=== PATIENT | male | born 1950 | race Two or more races ===

== ENCOUNTER 2024-06-26 07:44 | Day surgery (SDC) | payer OTHER ==
[~2024-06-26] VITALS: Ht 175.3 cm; Wt 117.0 kg
[~2024-06-26 07:44] MED LIST: APIX5TAB PO; ASCO500T11 PO; ATOR-47 PO; B COCAP OR; CARV12.544 PO; CHOL50007 PO; CLON0.1T PO; DRON400T PO; FERR-7 PO; FURO40TA4 PO; GABA-339 PO; HYDR-2792 PO; INSU70IN3 SC; LISI10TA34 PO; OMEG120015 PO; POM PO; POTA-180 PO; ZINC50TA7 PO
[2024-06-26] MEDS ORDERED: HEPARIN IN NS 1000Units/500mL 1,500 ML ONE (08:11)
[2024-06-26] MEDS ORDERED: IODIXANOL 320MG/ML 100ML BTL IV ONE ×3 (08:11→12:24)
[2024-06-26] MEDS ORDERED: fentaNYL CITRATE 100 MCG/2 ML VL ONE (10:51)
[2024-06-26] MEDS ORDERED: LIDOCAINE 2%HCL (LOCAL ANESTH.) INJ 20ML MDV ONE (10:51)
[2024-06-26] MEDS ORDERED: MIDAZOLAM HCL 2MG/2ML 2ml VIAL (1mg/ml) ONE ×2 (10:51→12:51)
[2024-06-26] MEDS ORDERED: SODIUM CHL 0.9% 50 ML ONE ×2 (10:51→12:36)
[2024-06-26] MEDS ORDERED: ANGIOMAX 250 MG VIAL IV ONE ×2 (10:51→12:36)
[2024-06-26] MEDS ORDERED: HEPARIN SODIUM (PORCINE) 5000 UNITS/ML 1ML VIAL ONE (11:37)
[2024-06-26] MEDS ORDERED: ASPirin 81 mg TAB ONE ×2 (13:11→13:12)
[2024-06-26] MEDS ORDERED: CLOPIDOGREL BISULFATE 75 MG TAB ONE (13:11)
--- NOTE | 2024-06-26 13:37 | DVHOP2 ---
Operative Report -Cardiology Report Details Date: 06/26/24 Preop Diagnosis: Coronary artery disease. Aortic stenosis. Postop Diagnosis: Coronary artery disease. Successful PTCA and stenting of the saphenous graft to the marginal branch. Evaluation of the aortic stenosis. Surgeon: Estephanie Kearney MD Anesthesiologist: Conscious sedation Anesthesia: Mac, Local Consent: The patient was informed of the risks and benefits of the procedure. These include but are not limited to complications of anesthesia, postoperative infection, incomplete relief of symptoms, recurrence of symptoms, damage to blood vessels, nerves and tendons, deep venous thrombosis, pulmonary embolism and possible need for repeat surgery in the future. Complications: No complications Findings: CAD. Aortic stenosis. Indications for Surgery: CAD. Aortic stenosis Name of Procedure Performed Right and left heart catheterization. Bilateral cine coronary angiography and left ventriculography. Visualization of saphenous venous grafts and left internal mammary artery. PTCA stenting of the saphenous graft to the marginal branch. Procedure Details Procedure Details: Prior local anesthesia with 2% lidocaine to the right groin and full informed consent obtained under fluoroscopic and ultrasound guidance we were able to delineate the femoral artery and vein. We gave local anesthesia and conscious sedation and placed a six [place]raini sheath into the femoral vein and a six [place]i sheath into the femoral artery. We then placed a Orland-Tameka catheter into the right atrium right ventricle pulmonary artery capillary wedge pressure positions where pressures were obtained and recorded. Through the femoral arterial sheath we placed a Princeton catheter and placed into the ventricle subsequent to exchanging over a wire and initially using a JR4 to excise left ventricle. Right and left coronary catheters were used to cannulate the coronary ostium and an AL1 was then used for visualization of saphenous venous grafts. An AL1 guide was used for PTCA and stenting of the saphenous graft to the circumflex. We also used a right coronary catheter to access the internal mammary artery. PTCA and stenting as will be delineated below. Hemodynamics aortic blood pressure was 130/70. End-diastolic pressure was 16. Right atrial pressure was 10. Right ventricular pressure was 31 over 10 with a right ventricular pressure of 30/20. Capillary wedge pressure was 12-15. There was a 20 mm gradient across the aortic valve on simultaneous evaluations with a Princeton catheter in the right ventricle and aortic root. Cardiac output blood thermodilution technique was approximately 4.2. 20 mm gradient across the aortic valve was noted. An aortic valve area was calculated at 0.9 8-1.1 cm2 consistent with [id number] aortic stenosis. Coronary anatomy RCA is occluded proximally. Left main has an ostial 99% stenosis and a distal 99% lesion. Left anterior descending coronary artery is diffusely diseased proximally with competitive flow from the MINA. The circumflex coronary artery has a 99% subtotal stenosis with competitive flow noted from the saphenous graft via a marginal branch. The left internal mammary to the LAD is patent. There was moderate disease of the LAD without critical lesions. The saphenous graft to the RCA PDA is patent. Distal filling of the small posterolateral branches is noted. The proximal PDA has a 40 50% stenosis. Minimal retrograde filling of the RCA. The saphenous crossed the large obtuse marginal branches noted. There is retrograde filling into the circumflex and distal inferior circumflex proper via saphenous graft. The saphenous graft itself prior to the anastomosis has an 80% lesion. Appears to be fibrocalcific. The for the saphenous graft was not foun d. Ventriculography in the EDWARDS projection shows an EF of about 50% to 55%. Angioplasty was performed for which an AL1 guide and a spider wire were placed with the help of a Specter wire. We placed the 6 mm spider wire in the distal saphenous graft prior to the anastomosis of the marginal branch. We then took a 4-0 balloon dilated to a possible 15-20 atmospheres with a residual lesion the level of the stenosis previously described. We then placed a 4-0 by 12 mm stent which is a drug-eluting aruna trunk stent. Consists of the flow proximally 18 atmospheres. There was excellent antegrade flow without thrombus formation and/or dissection. We subsequently removed the spider wire with its retraction catheter and Perclose devices were used to seal the artery. Femoral venous sheath was left to be pulled in the recovery room Impression: Elevated left ventricular end-diastolic pressure at rest. Decreased left ventricular ejection fraction at 50%. Normal pulmonary pressures. Mildly elevated left ventricular end-diastolic pressure at rest. Mild gradient across the aortic valve with 20 mmHg. Valve area of point two one cm2 consistent with moderate aortic stenosis. Successful PTCA and stenting of the saphenous graft to the marginal branch. Patent left internal mammary artery to the LAD. Patent saphenous graft to the right. Recommendations: Dual antiplatelet therapy. Follow up as an outpatient. Sphincter modification to continue Disposition Home ESTEPHANIE KEARNEY Sr., MD Jun 26, 2024 13:37
[2024-06-26] MEDS ORDERED: CLOP75TA28 PO (14:34)
[2024-06-26] MEDS ORDERED: ASPI-543 PO (14:34)
== END 2024-06-26 15:20 | disposition home or self-care (01) ==
LOC: CATH 07:44
PROVIDERS: ATTEND Internal Medicine
DX: R07.9 Chest pain, unspecified (principal); I25.10 Atherosclerotic heart disease of native coronary artery without angina pectoris; I35.0 Nonrheumatic aortic (valve) stenosis; Z95.5 Presence of coronary angioplasty implant and graft
CPT/HCPCS: 93461; C1725; C1769; C1874; C1884; C1887; C1894; C9604; J0583; J1644; J2250; J3010; J7030; Q9967; 99152; 99153

== ENCOUNTER 2024-07-14 21:56 | Inpatient (IN) | payer OTHER ==
[~2024-07-14] VITALS: Ht 172.7 cm; Wt 113.0 kg
[~2024-07-14 21:56] MED LIST changes: +ASPI-543 PO; +CLOP75TA28 PO
[2024-07-14] MEDS: ASPirin 81 mg TAB PO ONE (22:15)
[2024-07-14] MEDS ORDERED: ASPirin 325 MG TAB PO ONE (22:15)
--- NOTE | 2024-07-14 22:20 | ED.PDOC ---
History of Present Illness HPI Comments 73 y/o M, with a Hx of aortic stenosis, CAD, DM, HLD, HTN, 4xCABG, PTCA, obesity, and former tobacco use, presents with c/o sternal chest pain that radiates to his jaw, today. Patient endorses on sudden and unprovoked onset of stabbing and aching pain that awoke him from his sleep at 2100, this evening. He comments on recent PTCA (saphenous graft to marginal branch) placement performed by skein winder Pradeep Kearney M.D. on 06/26/24 and being on ASA and Plavix since. He comments on history of compliancy with his medications and last taking 1x dose of ASA and Plavix this morning and evening, respectively. Patient also reports on taking NTG a half-hour prior to ED arrival, with moderate improvement to pain since taking it. Patient endorse no further relevant or pertinent information at time of assessment, such as recent stress, strenuous activities, or sick contact. He denies having any shortness of breath, palpitations, nausea, vomiting, fever, chills, or other associated symptoms or modifiers at this time. Chief Complaint: Chest Pain Time Seen by MD: 22:00 Reviewed Notes: Nurses Notes, Medications, Allergies Allergies: Uncoded Allergies: NONE (Allergy, Unknown, 06/24/24) Home Meds Reported Medications Aspirin (Aspir-Low) 81 Mg Tab, 81 MG PO DAILY for new stent for 30 Days, MG 06/26/24 Clopidogrel Bisulfate (Plavix) 75 Mg Tab, 1 TAB PO DAILY for new stent, #90 TAB 1 Refill 06/26/24 Insulin NPH Isophane & Reg (Hu (Novolin 70/30 (70-30) 100 Unit/ml) 1 Inj Inj, 45 IU SC BID for DIABETES, INJ 06/24/24 Patients Own Medication (PATIENTS OWN MEDICATION) ., 150 PO DAILY for IMMUNO PTS OWN MED-OBTAIN FROM PT AND SEND TO RX DRUG: FREQ: RX# EXP: DATE DISP: TECH: RPH: 06/24/24 B-Complex Vitamins (B-Complex) Cap, 1 OR DAILY, CAP 06/24/24 Fish Oil (Fish Oil) 1,200 Mg Cap, 1200 MG PO, CAP 06/24/24 Potassium Chloride (Potassium Chloride ER) 20 Meq Tab, 20 MEQ PO EOD, TAB 06/24/24 Zinc Gluconate (Zinc) 50 Mg Tab, 50 MG PO S,W,F, TAB 06/24/24 Ferrous Sulfate (Iron) 325 Mg Tab, 325 MG PO S,W,F, TAB 06/24/24 Ascorbic Acid (VITAMIN C TABLET) 500 Mg Tb, 2 TAB PO DAILY, #30 TAB 3 Refills 06/24/24 Cholecalciferol (VITAMIN D3) 5,000 Unit Cap, 5000 UNIT PO 2XW, CAP 06/24/24 Clonidine Hydrochloride (Clonidine Hcl) 0.1 Mg Tab, 0.1 MG PO BID for HTN, MG 06/24/24 Gabapentin (Gabapentin) 600 Mg Tab, 600 MG PO BID for NEUROPATHY, MG 06/24/24 Atorvastatin Calcium (ATORVASTATIN CALCIUM) 80 Mg Tab, 1 TAB PO DAILY, #30 TAB 5 Refills 06/24/24 Carvedilol (Carvedilol) 12.5 Mg Tab, 12.5 MG PO BID for HTN, MG 06/24/24 Furosemide (Furosemide) 40 Mg Tab, 40 MG PO DAILY for EDEMA 06/24/24 Hydralazine Hcl (Hydralazine Hcl) 10 Mg Tab, 10 MG PO BID for HTN, MG 06/24/24 Lisinopril (Lisinopril) 10 Mg Tab, 10 MG PO DAILY for HTN for 30 Days, MG 06/24/24 Dronedarone Hydrochloride (Multaq) 400 Mg Tab, 1 TAB PO BID, #180 TAB 1 Refill 06/24/24 Apixaban Base (ELIQUIS) 5 Mg Tab, 5 MG PO BID for CHEST PAIN, S/P CABG, TAB 06/24/24 Information Source: Patient Mode of Arrival: Ambulatory Severity: Moderate Timing: Hours Duration: Since onset Prehospital treatment: None Past Medical History PAST MEDICAL HISTORY: CAD, DM, High Lipids, HTN Past Medical History (Other): aortic stenosis, obesity Surgical History: CABG (4x), PTCA (saphenous graft to marginal branch on 06/26/24 on Plavix and ASA since ) Family History Family History: Unknown Social History Smoker: Non-Smoker, Quit Greater Than 1 Year Alcohol: Denies ETOH Use Drugs: Denies Drug Use Lives In: Home Cardiovascular: reports: chest pain Musculoskeletal: reports: others (jaw pain ) All Other Systems: Reviewed and Negative (negative unless otherwise stated above or in HPI) Physical Exam General Appearance: No Apparent Distress, Obese HEENT: Normal ENT Inspection, Pharynx Normal, TMs Normal Neck: Full Range of Motion, Non-Tender, Normal, Normal Inspection Respiratory: Chest Non-Tender, Lungs Clear, No Accessory Muscle Use, No Respiratory Distress, Normal Breath Sounds Cardiovascular: No Edema, No JVD, No Murmur, No Gallop, Normal Peripheral Pulses, Regular Rate/Rhythm Breast Exam: Deferred Gastrointestinal: No Organomegaly, Non Tender, No Pulsatile Mass, Normal Bowel Sounds, Soft Genitalia: Deferred Pelvic: Deferred Rectal: Deferred Extremities: No calf tenderness, Normal capillary refill, Normal inspection, Normal range of motion, Non-tender, No pedal edema Musculoskeletal : Apperance: Normal Neurologic: Alert, secure software assessor II-XII nml as Tested, No Motor Deficits, Normal Affect, Normal Mood, No Sensory Deficits Cerebellar Function: Normal Reflexes: Normal Skin: Dry, Normal Color, Warm Lymphatic: No Adenopathy Was a procedure done? Was a procedure done?: No EKG EKG : Pulse Rate (adult): 82 [place]: Normal Cardiac Rhythm: NSR Block: RBBB Hypertrophy: None ST: Normal Comments Left anterior fascicular block Differential Dx Considerations may include: WA, PE, PNA, ACS, costochondritis, pericarditis, gastritis, gastroenteritis, anxiety, angina, musculoskeletal pain X-Ray, Labs, Meds, VS Vital Signs Date Time Temp Pulse Resp B/P (MAP) Pulse Ox O2 Delivery O2 Flow Rate FiO2 07/14/24 22:56 69 07/14/24 22:20 82 07/14/24 22:06 98.3 79 16 116/41 (66) 94 07/14/24 22:00 82 Lab Test 07/14/24 23:02 07/14/24 22:05 Range/Units Troponin I High Sensitivity 131 *H 135 *H </=54 ng/L White Blood Count 6.6 4.4-10.8 10^3/uL Red Blood Count 2.51 L 4.5-5.90 10^6/uL Hemoglobin 7.8 L 13.5-17.5 g/dL Hematocrit 23.0 L 41.0-53.0 % Mean Corpuscular Volume 91.6 80.0-100.0 fL Mean Corpuscular Hemoglobin 31.2 28.0-32.0 pg Mean Corpuscular Hemoglobin Concent 34.1 32.0-36.0 g/dL Red Cell Distribution Width 15.4 H 11.8-14.3 % Platelet Count 168 140-450 10^3/uL Mean Platelet Volume 8.5 6.9-10.8 fL Neutrophils (%) (Auto) 66.5 37.0-80.0 % Lymphocytes (%) (Auto) 19.9 10.0-50.0 % Monocytes (%) (Auto) 8.7 0.0-12.0 % Eosinophils (%) (Auto) 3.7 0.0-7.0 % Basophils (%) (Auto) 1.2 0.0-2.0 % Neutrophils # (Auto) 4.4 1.6-8.6 10 ^3/uL Lymphocytes # (Auto) 1.3 0.4-5.4 10 ^3/uL Monocytes # (Auto) 0.6 0-1.3 10 ^3/uL Eosinophils # (Auto) 0.2 0-0.8 10 ^3/uL Basophils # (Auto) 0.1 0-0.2 10 ^3/uL Nucleated Red Blood Cells 0.1 % Sodium Level 139 136-145 mmol/L Potassium Level 4.5 3.5-5.1 mmol/L Chloride Level 105 98-107 mmol/L Carbon Dioxide Level 26 20-31 mmol/L Anion Gap 8 5-15 Blood Urea Nitrogen 22 9-23 mg/dL Creatinine 2.10 H 0.700-1.30 mg/dL Glomerular Filtration Rate Calc 32 >90 mL/min BUN/Creatinine Ratio 10.5 10.0-20.0 Serum Glucose 196 H 74-106 mg/dL Calcium Level 9.2 8.7-10.4 mg/dL Total Bilirubin 0.4 0.2-1.0 mg/dL Aspartate Amino Transferase (AST) 17 13-40 U/L Alanine Aminotransferase (ALT) 24 7-40 U/L Alkaline Phosphatase 80 46-116 U/L Total Protein 5.5 L 5.7-8.2 g/dL Albumin 3.8 3.2-4.8 g/dL Current Medications Medications (Trade) Dose Ordered Sig/Phuong Route Start Time Stop Time Status Last Admin Aspirin 324 mg ONCE ONCE PO 07/14/24 22:15 07/14/24 22:16 DC 07/14/24 22:15 [facility] [id number] [address] Ph: [phone] DIAGNOSTIC IMAGING Diagnostic Imaging Report : [id number] Signed PATIENT: JONAS CRUZ ACCT: [id number] UNIT: [id number] : 1950 LOC: ER ROOM / BED: / AGE / SEX: 73 / M ADM STATUS: REG ER SERVICE 03 ORDERING PHYSICIAN: OG ROBLES MD PROCEDURE(s): CXRP - CHEST PORTABLE REASON: cp ORDER NUMBER(s): [id number], ACCESSION NUMBER(s): [id number] CHEST RADIOGRAPH Indication: cp Technique: Single frontal view of the chest was obtained Comparison: None FINDINGS: Lines and Tubes: None Lungs: Clear Pleura: No effusion. No pneumothorax. Cardiomediastinal contours: Status post CABG. Bones: Unremarkable IMPRESSION: Clear lungs. ATED BY: LISSETTE SANDOVAL DO DICTATED DATE/TIME: 07/14/242231 SIGNED BY: LISSETTE SANDOVAL DO SIGNED DATE/TIME: 07/14/242231 CC: Time of 1ST Reevaluation: 22:30 Reevaluation 1ST: Unchanged Patient Education/Counseling: Diagnosis, Treatment Family Education/Counseling: No Family Present Additional Information from patient's past medical encounters: Operative record on 06/26/24 The following tests were ordered, and results were reviewed by me: CXR, troponin, EKG, CMP, CBC, BNP I reviewed and agreed with the following test results read by other providers: CXR I discussed treatment and results with medical personnel Departure 1 Departure Time of Disposition: 00:16 Impression: Primary Impression: Anemia Additional Impressions: Unstable angina Elevated troponin Renal failure Qualified Codes: N19 - Unspecified kidney failure Disposition: 09 ADMITTED INPATIENT Admit to: [facility] Condition: Serious Critical Care Note Critical Care Time?: Yes (45 min-critical care time only) Critical care comment: 55 mins of cc care: due to concerns for deterioration of patient's condition, the care required my highest level of attention and readiness. i assessed the patient's condition, reviewed relevant documents, communicated with medical personnel, ordered the proper tests and treatments, reassed fro results and response to treatments, spoke to family and consultants and formulated a plan of care Stability Stability form required: No Heart Score Heart Score: Heart Score Response (Comments) Value History Highly Suspicious 2 EKG Normal 0 Age >65 2 Risk Factors >3 or Hx ASHD 2 Troponin >3 x's Normal limit 2 Total 8 I personally scribed for OG ROBLES MD ([email or web address]) on 07/14/24 at 22:20. Electronically submitted by Enrique Stanton ([email or web address]). I personally scribed for OG ROBLES MD ([email or web address]) on 07/14/24 at 23:16. Electronically submitted by Enrique Stanton [email or web address]). OG ROBLES MD Jul 14, 2024 22:20
--- NOTE | 2024-07-14 22:34 | DVH ---
CHEST RADIOGRAPH Indication: cp Technique: Single frontal view of the chest was obtained Comparison: None FINDINGS: Lines and Tubes: None Lungs: Clear Pleura: No effusion. No pneumothorax. Cardiomediastinal contours: Status post CABG. Bones: Unremarkable IMPRESSION: Clear lungs.
[2024-07-14 22:54] LABS: Basophils # (auto) 0.1 10 ^3/uL (0-0.2); Eosinophils # (auto) 0.2 10 ^3/uL (0-0.8); Monocytes # (auto) 0.6 10 ^3/uL (0-1.3); Nucleated Red Blood Cells % 0.1 %; Red Blood Cells 2.51 10^6/uL (4.5-5.90); Red Cell Distribution Width 15.4 % (11.8-14.3); White Blood Cell 6.6 10^3/uL (4.4-10.8)
[2024-07-14 22:56] LABS: Basophils % (auto) 1.2 % (0.0-2.0); Eosinophils % (auto) 3.7 % (0.0-7.0); Hemoglobin 7.8 g/dL (13.5-17.5); Lymphocytes # (auto) 1.3 10 ^3/uL (0.4-5.4); Lymphocytes % (auto) 19.9 % (10.0-50.0); Mean Corpuscular Hemoglobin 31.2 pg (28.0-32.0); Mean Corpuscular Hgb Conc. 34.1 g/dL (32.0-36.0); Mean Corpuscular Volume 91.6 fL (80.0-100.0); Monocytes % (auto) 8.7 % (0.0-12.0); Neutrophils # (auto) 4.4 10 ^3/uL (1.6-8.6); Neutrophils % (auto) 66.5 % (37.0-80.0); Platelet Count (auto) 168 10^3/uL (140-450)
--- NOTE | 2024-07-14 22:57 | ECG ---
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
[2024-07-14 23:18] LABS: Alanine Aminotransferase 24 U/L (7-40); Albumin 3.8 g/dL (3.2-4.8); Alkaline Phosphatase 80 U/L (46-116); Anion Gap 8 (5-15); Aspartate Aminotransferase 17 U/L (13-40); BUN/Creatinine Ratio 10.5 (10.0-20.0); Bilirubin, Total 0.4 mg/dL (0.2-1.0); Blood Urea Nitrogen 22 mg/dL (9-23); Calcium 9.2 mg/dL (8.7-10.4); Carbon Dioxide 26 mmol/L (20-31); Chloride 105 mmol/L (98-107); Potassium 4.5 mmol/L (3.5-5.1); Sodium 139 mmol/L (136-145)
[2024-07-14 23:19] LABS: Glucose 196 mg/dL (74-106); Total Protein 5.5 g/dL (5.7-8.2)
[2024-07-15] VITALS: PULSE 65; RESP 20; O2SAT 95
[2024-07-15] MEDS: SODIUM CHLORIDE 0.9% 500 ML IV ONE (00:40)
[2024-07-15] MEDS ORDERED: ACETAMINOPHEN 325 MG TAB PO PRN (01:30)
[2024-07-15] MEDS ORDERED: DEXTROSE (50%) 50ML SYRG IV PRN (01:30)
[2024-07-15] MEDS ORDERED: HYDROcodone-ACET 5/325MG TAB PO PRN (01:30)
[2024-07-15] MEDS ORDERED: DOCUSATE SOD 100 MG CAP PO PRN (01:30)
[2024-07-15] MEDS ORDERED: ONDANSETRON HCL 4 MG/2 ML VIAL IV PRN (01:30)
[2024-07-15 03:44] LABS: Basophils # (auto) 0.1 10 ^3/uL (0-0.2); Basophils % (auto) 1.2 % (0.0-2.0); Eosinophils # (auto) 0.2 10 ^3/uL (0-0.8); Eosinophils % (auto) 4.2 % (0.0-7.0); Hematocrit 22.9 % (41.0-53.0); Hemoglobin 7.5 g/dL (13.5-17.5); Lymphocytes # (auto) 1.5 10 ^3/uL (0.4-5.4); Lymphocytes % (auto) 26.2 % (10.0-50.0); Mean Corpuscular Hemoglobin 31.1 pg (28.0-32.0); Mean Corpuscular Hgb Conc. 32.9 g/dL (32.0-36.0); Mean Corpuscular Volume 94.4 fL (80.0-100.0); Monocytes # (auto) 0.5 10 ^3/uL (0-1.3); Monocytes % (auto) 8.7 % (0.0-12.0); Neutrophils # (auto) 3.5 10 ^3/uL (1.6-8.6); Neutrophils % (auto) 59.7 % (37.0-80.0); Nucleated Red Blood Cells % 0.1 %; Platelet Count (auto) 157 10^3/uL (140-450); Red Blood Cells 2.43 10^6/uL (4.5-5.90); Red Cell Distribution Width 15.6 % (11.8-14.3); White Blood Cell 5.8 10^3/uL (4.4-10.8)
--- NOTE | 2024-07-15 03:49 | ECG ---
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
[2024-07-15 04:00] LABS: Potassium 4.8 mmol/L (3.5-5.1); Sodium 140 mmol/L (136-145)
[2024-07-15 04:01] LABS: Anion Gap 8 (5-15); Carbon Dioxide 25 mmol/L (20-31)
[2024-07-15 04:06] LABS: BUN/Creatinine Ratio 10.3 (10.0-20.0); Blood Urea Nitrogen 20 mg/dL (9-23)
[2024-07-15 04:11] LABS: Chloride 107 mmol/L (98-107); Glucose 107 mg/dL (74-106)
--- NOTE | 2024-07-15 04:32 | DVHHP2 ---
ADRIAN BE RETAIL BAKERY MANAGER 07/15/24 0432: History of Present Illness Reason for Visit: Chest pain History of Present Illness 73-year-old male with past medical history of HLD, hypertension, DM, PTCA and stenting of the saphenous graft on June 26, 2024 presents with complaints of substernal chest pain radiating to the left jaw x1 day. Patient states he was asleep and suddenly woke up with a chest pain. On arrival to the emergency department chest pain was 7/10. However has improved at this time after being treated with sublingual nitroglycerin. 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 Kearney. Recently started on DAPT. During the emergency department evaluation troponins are noted to be elevated 135/131/154. And also found to be anemic with a hemoglobin 7.8. Patient states last colonoscopy was about15 years ago. Also states he does not have formed stools. States he has "blowout" with dark loose stool. At this time patient denies any fevers, chills, dizziness, shortness of breath, palpitations, nausea, vomiting, hematemesis, hematuria. Cardiovascular: CAD, HTN, hyperipidemia Endocrine: Diabetes Smoke: No ALCOHOL: none Drugs: None Lives: with Family Review of Systems Constitutional: No: Fever, Chills, Sweats, Weakness, Malaise, Other Eyes: No: Pain, Vision change, Conjunctivae inflammation, Eyelid inflammation, Other, Redness ENT: No: Ear pain, Ear discharge, Nose pain, Nose discharge, Nose congestion, Mouth pain, Mouth swelling, Throat pain, Throat swelling, Other Respiratory: No: Cough, Dry, Shortness of breath, SOB with excertion, Wheezing, Hemoptysis, Pleuritic Pain, Sputum, Wheezing, Other Cardiovascular: Chest Pain, Edema; No: Palpitations, Orthopnea, Paroxysmal Noc. Dyspnea, Lt Headedness, Other Gastrointestinal: No: Nausea, Vomiting, Abdominal Pain, Diarrhea, Constipation, Melena, Hematochezia, Other Genitourinary: No Dysuria, No Frequency, No Incontinence, No Hematuria, No Retention, No Other Musculoskeletal: No: other, neck pain, shoulder pain, arm pain, back pain, hand pain, leg pain, foot pain Skin: No: Rash, Lesions, Jaundice, Bruising, Other Neurological: No: Weakness, Numbness, Incoordination, Change in speech, Confusion, Seizures, Other Allergies: Uncoded Allergies: NONE (Allergy, Unknown, 06/24/24) Medications Current Medications Medications Dose Ordered Sig/Phuong Route Start Time Stop Time Status Last Admin Dose Admin Diagnostic Test (Pha) 1 strip ACHS 07/15/24 07:00 Insulin Human Regular ACHS SC 07/15/24 07:00 Dextrose 50 ml UD PRN IV 07/15/24 01:30 Pantoprazole Sodium 40 mg DAILY IV 07/15/24 10:00 Atorvastatin Calcium 80 mg DAILY PO 07/15/24 10:00 Aspirin 81 mg DAILY PO 07/15/24 10:00 Docusate Sodium 100 mg BIDPRN PRN PO 07/15/24 01:30 Acetaminophen 650 mg Q6HP PRN PO 07/15/24 01:30 Acetaminophen/ Hydrocodone Bitart 1 tab Q6HP PRN PO 07/15/24 01:30 Ondansetron HCl 4 mg Q4HP PRN IV 07/15/24 01:30 Nitroglycerin 0.4 mg Q5MINP PRN SL 07/15/24 01:30 Morphine Sulfate 2 mg Q30M PRN IV 07/15/24 01:30 Exam Vital Signs Vital Signs Date Time Temp Pulse Resp B/P (MAP) Pulse Ox O2 Delivery O2 Flow Rate FiO2 07/15/24 04:00 67 13 121/47 (71) 93 07/15/24 00:00 Room Air* 0 21 07/15/24 00:00 98.6 98.6 General Appearance: Alert, Oriented X3, Cooperative, mild distress HEENT: Atraumatic, PERRLA Respiratory: Clear to auscultation, Normal air movement Cardiovascular: Regular rate, Normal S1, Normal S2 Abdominal: Normal bowel sounds, Soft, No tenderness Extremities: No clubbing, No cyanosis, Normal pulses, Other (BLE 2+ pitting edema) Skin: No breakdown Neuro: Normal speech, Strength at 5/5 X4 ext Psych/Mental Status: Mental status NL, Mood NL Labs/Xrays Labs Test 07/15/24 03:14 07/15/24 01:02 07/14/24 22:05 Range/Units White Blood Count 5.8 4.4-10.8 10^3/uL Red Blood Count 2.43 L 4.5-5.90 10^6/uL Hemoglobin 7.5 L 13.5-17.5 g/dL Hematocrit 22.9 L 41.0-53.0 % Mean Corpuscular Volume 94.4 80.0-100.0 fL Mean Corpuscular Hemoglobin 31.1 28.0-32.0 pg Mean Corpuscular Hemoglobin Concent 32.9 32.0-36.0 g/dL Red Cell Distribution Width 15.6 H 11.8-14.3 % Platelet Count 157 140-450 10^3/uL Mean Platelet Volume 8.2 6.9-10.8 fL Neutrophils (%) (Auto) 59.7 37.0-80.0 % Lymphocytes (%) (Auto) 26.2 10.0-50.0 % Monocytes (%) (Auto) 8.7 0.0-12.0 % Eosinophils (%) (Auto) 4.2 0.0-7.0 % Basophils (%) (Auto) 1.2 0.0-2.0 % Neutrophils # (Auto) 3.5 1.6-8.6 10 ^3/uL Lymphocytes # (Auto) 1.5 0.4-5.4 10 ^3/uL Monocytes # (Auto) 0.5 0-1.3 10 ^3/uL Eosinophils # (Auto) 0.2 0-0.8 10 ^3/uL Basophils # (Auto) 0.1 0-0.2 10 ^3/uL Nucleated Red Blood Cells 0.1 % Sodium Level 140 136-145 mmol/L Potassium Level 4.8 3.5-5.1 mmol/L Chloride Level 107 98-107 mmol/L Carbon Dioxide Level 25 20-31 mmol/L Anion Gap 8 5-15 Blood Urea Nitrogen 20 9-23 mg/dL Creatinine 1.94 H 0.700-1.30 mg/dL Glomerular Filtration Rate Calc 36 >90 mL/min BUN/Creatinine Ratio 10.3 10.0-20.0 Serum Glucose 107 H 74-106 mg/dL Calcium Level 9.0 8.7-10.4 mg/dL Troponin I High Sensitivity 154 *H </=54 ng/L Total Bilirubin 0.4 0.2-1.0 mg/dL Aspartate Amino Transferase (AST) 17 13-40 U/L Alanine Aminotransferase (ALT) 24 7-40 U/L Alkaline Phosphatase 80 46-116 U/L Total Protein 5.5 L 5.7-8.2 g/dL Albumin 3.8 3.2-4.8 g/dL Assessment/Plan Assessment/Plan Chest pain (High Heart Score 8) Elevated troponin Anemia, unknown chronicity. DM with elevated blood glucose MELI, unknown CKD Plan Admit telemetry Cardiology consult. Echocardiogram. ASA. Statin. As needed anti hypertensive for optimal BP management. Defer DAPT to cardiology. Monitor BMP. Trend BUN / Creatinine. Correct electrolytes as needed. Monitor H&H q6hr x2. Transfuse PRBCs for hgb < 7. Iron panel. Occult stool. GI consult. Blood glucose checks ACHS with regular insulin sliding scale coverage for optimal glycemic management. GI ppx protonix / DVT ppx SCD. Plan discussed with: Patient My Orders Orders - ADRIAN BE NP Procedure Category Date Status Time Glucose Blood PHA 07/15/24 In Process (Accu-Chek Comfort 07:00 Insulin R (Human) PHA 07/15/24 In Process (Insulin R) 07:00 Dextrose 50% Syringe PHA 07/15/24 In Process 01:30 * Cardiology Consult CONS 07/15/24 Transmitted 01:22 Stool Occult Blood LAB 07/15/24 Logged 01:22 Hemoglobin & LAB 07/15/24 Logged Hematocrit 12:00 Hemoglobin & LAB 07/15/24 Logged Hematocrit 18:00 Pantoprazole PHA 07/15/24 In Process (Protonix) 10:00 Atorvastatin (Lipitor) PHA 07/15/24 In Process 10:00 Aspirin Enteric PHA 07/15/24 In Process Coated Tablet 10:00 Admit ADMIT 07/15/24 Transmitted 01:22 Code Status CODE 07/15/24 Transmitted 01:22 Vital Signs SHANNAN 07/15/24 In Process 01:22 Review Orders With SHANNAN 07/15/24 In Process Adm. 01:22 Encourage Activity As SHANNAN 07/15/24 In Process Tolerate 01:22 Consistent DIET 07/15/24 Transmitted Carb(Ccho)Diabetes Breakfast Oxygen By Face Mask RT 07/15/24 Transmitted 01:22 Docusate Sodium PHA 07/15/24 In Process Capsule (Colace 01:30 Acetaminophen Tablet PHA 07/15/24 In Process (Tylenol Tablet) 01:30 Notify Of Changes SHANNAN 07/15/24 In Process From Base 01:22 Advance Directive SHANNAN 07/15/24 In Process 01:22 Echo 2d Mode Cardiac US 07/15/24 Logged DOP 01:22 Basic Metabolic Panel LAB 07/16/24 Verified 05:00 Basic Metabolic Panel LAB 07/17/24 Verified 05:00 Complete Blood Count LAB 07/16/24 Verified 05:00 Complete Blood Count LAB 07/17/24 Verified 05:00 Patient Condition ORDERS 07/15/24 Transmitted 01:22 Allergies SHANNAN 07/15/24 In Process 01:22 Hydrocodone-Acet PHA 07/15/24 In Process 5/325mg Tab ([place] 01:30 Ondansetron Hcl PHA 07/15/24 In Process (Zofran) 01:30 Sequential SHANNAN 07/15/24 In Process Compression Device Nitroglycerin PHA 07/15/24 In Process Sublingual (Ntrostat 01:30 Morphine Sulfate PHA 07/15/24 In Process Injection 01:30 Stat Ekg For Chest [facility] 07/15/24 In Process Pain 01:22 Notify Of Changes [facility] 07/15/24 In Process From Base 01:22 Ambulance Assistant For [facility] 07/15/24 In Process 24 Hours 01:22 Emergency Dysrhythmia [facility] 07/15/24 In Process Protocol 01:22 Rhythm Strips Once [facility] 07/15/24 In Process Every Shift 01:22 Oxygen By Nasal RT 07/15/24 Transmitted Cannula 01:22 Troponin-I Hs LAB 07/15/24 Logged 08:00 Troponin-I Hs LAB 07/15/24 Logged 12:00 Date of Service: Jul 15, 2024 Billing Provider: VIVIANA GOODRICH MD Common Visit Codes: NOT BILLABLE VIVIANA GOODRICH MD 07/15/24 1741: Review of Systems Allergies: Uncoded Allergies: NONE (Allergy, Unknown, 06/24/24) Assessment/Plan Assessment/Plan Patient is seen and evaluated by me this afternoon. Patient is seen evaluated and admitted by nurse practitioner medical technical writer. I agree with his evaluation, documentation, assessment and care plan as outlined. ADRIAN BE NP Jul 15, 2024 04:32 VIVIANA GOODRICH MD Jul 15, 2024 17:41
[2024-07-15] MEDS: ACCU-CHEK COMFORT CURVE STRIP VI SCH (06:46)
[2024-07-15] MEDS: InsuLIN REG 1unit/0.01ml Soln (100units/ml) SC SCH (06:46)
--- NOTE | 2024-07-15 09:47 | DVHINCON2 ---
Date Seen: Jul 15, 2024 Referring [facility] Reason for Consultation Chest pain History of Present Illness 73-year-old gentleman well known to me. Recent angioplasty and stenting to the saphenous graft to the marginal about two weeks ago. Patient developed severe substernal pressure last night. Positive troponins suggest recurrent ischemia. Consider stent thrombosis. His past medical history is clearly documented associated history of coronary artery disease. Diabetes hypertension. Past Medical History Noted history of hypertension diabetes mellitus coronary artery disease coronary bypass grafting. Recent stenting of the saphenous graft to the circumflex marginal. Past Surgical History Coronary artery bypass grafting. Family History Family history of coronary artery disease. Social History Quit smoking over a year ago. No alcohol or drug abuse. Lives at home. Allergies: Uncoded Allergies: NONE (Allergy, Unknown, 06/24/24) Home Meds Reported Medications Aspirin (Aspir-Low) 81 Mg Tab, 81 MG PO DAILY for new stent for 30 Days, MG 06/26/24 Clopidogrel Bisulfate (Plavix) 75 Mg Tab, 1 TAB PO DAILY for new stent, #90 TAB 1 Refill 06/26/24 Insulin NPH Isophane & Reg (Hu (Novolin 70/30 (70-30) 100 Unit/ml) 1 Inj Inj, 45 IU SC BID for DIABETES, INJ 06/24/24 Patients Own Medication (PATIENTS OWN MEDICATION) ., 150 PO DAILY for IMMUNO PTS OWN MED-OBTAIN FROM PT AND SEND TO RX DRUG: FREQ: RX# EXP: DATE DISP: TECH: RPH: 06/24/24 B-Complex Vitamins (B-Complex) Cap, 1 OR DAILY, CAP 06/24/24 Fish Oil (Fish Oil) 1,200 Mg Cap, 1200 MG PO, CAP 06/24/24 Potassium Chloride (Potassium Chloride ER) 20 Meq Tab, 20 MEQ PO EOD, TAB 06/24/24 Zinc Gluconate (Zinc) 50 Mg Tab, 50 MG PO S,W,F, TAB 06/24/24 Ferrous Sulfate (Iron) 325 Mg Tab, 325 MG PO S,W,F, TAB 06/24/24 Ascorbic Acid (VITAMIN C TABLET) 500 Mg Tb, 2 TAB PO DAILY, #30 TAB 3 Refills 06/24/24 Cholecalciferol (VITAMIN D3) 5,000 Unit Cap, 5000 UNIT PO 2XW, CAP 06/24/24 Clonidine Hydrochloride (Clonidine Hcl) 0.1 Mg Tab, 0.1 MG PO BID for HTN, MG 06/24/24 Gabapentin (Gabapentin) 600 Mg Tab, 600 MG PO BID for NEUROPATHY, MG 06/24/24 Atorvastatin Calcium (ATORVASTATIN CALCIUM) 80 Mg Tab, 1 TAB PO DAILY, #30 TAB 5 Refills 06/24/24 Carvedilol (Carvedilol) 12.5 Mg Tab, 12.5 MG PO BID for HTN, MG 06/24/24 Furosemide (Furosemide) 40 Mg Tab, 40 MG PO DAILY for EDEMA 06/24/24 Hydralazine Hcl (Hydralazine Hcl) 10 Mg Tab, 10 MG PO BID for HTN, MG 06/24/24 Lisinopril (Lisinopril) 10 Mg Tab, 10 MG PO DAILY for HTN for 30 Days, MG 06/24/24 Dronedarone Hydrochloride (Multaq) 400 Mg Tab, 1 TAB PO BID, #180 TAB 1 Refill 06/24/24 Apixaban Base (ELIQUIS) 5 Mg Tab, 5 MG PO BID for CHEST PAIN, S/P CABG, TAB 06/24/24 Current Medications Current Medications Medications (Trade) Dose Ordered Sig/Phuong Route PRN Reason Start Time Stop Time Status Last Admin Diagnostic Test (Pha) (Accu-Chek Comfort Curve T) 1 strip ACHS 07/15/24 07:00 07/15/24 06:46 Insulin Human Regular (InsuLIN R) ACHS SC 07/15/24 07:00 Dextrose 50 ml UD PRN IV Blood Sugar LESS THAN 60 07/15/24 01:30 Pantoprazole Sodium (Protonix) 40 mg DAILY IV 07/15/24 10:00 Atorvastatin Calcium (Lipitor) 80 mg DAILY PO 07/15/24 10:00 Aspirin (Ecotrin Enteric Coated Tablet) 81 mg DAILY PO 07/15/24 10:00 Docusate Sodium (Colace Capsule) 100 mg BIDPRN PRN PO FOR CONSTIPATION 07/15/24 01:30 Acetaminophen (Tylenol Tablet) 650 mg Q6HP PRN PO PAIN SCALE 1-3 OR TEMP>100.4 07/15/24 01:30 Acetaminophen/ Hydrocodone Bitart ([place] 5/325MG Tab) 1 tab Q6HP PRN PO MODERATE PAIN (4-6 PAIN SCALE) 07/15/24 01:30 Ondansetron HCl (Zofran) 4 mg Q4HP PRN IV NAUSEA / VOMITING 07/15/24 01:30 Nitroglycerin (Ntrostat Sublingual) 0.4 mg Q5MINP PRN SL FOR CHEST PAIN 07/15/24 01:30 Morphine Sulfate 2 mg Q30M PRN IV FOR CHEST PAIN 07/15/24 01:30 Review of Systems No constitutional symptoms of fevers chills or weight loss. Cardiac and respiratory as noted above. GI neuromuscular negative. Endocrine negative. Cardiac and respiratory as noted above. Hematologically and oncological negative. Vital Signs Vital Signs Date Time Temp Pulse Resp B/P (MAP) Pulse Ox O2 Delivery O2 Flow Rate FiO2 07/15/24 09:01 84 07/15/24 08:05 98.3 12 105/54 (71) 95 98.3 07/15/24 07:58 Room Air* 0 21 Physical Exam On physical examination he is awake and responsive no acute distress. His blood pressure is as noted. HEENT examination is otherwise unremarkable RA well hydrated. No jugular distention no bruits. Lungs reveal good air entry no rales or rhonchi. Heart exam reveals regular S1-S2 soft S4. Abdominal examination is otherwise unremarkable. Extremities reveal adequate perfusion without clubbing cyanosis no edema. Neurologically intact. Integumentary is normal. Labs/Diagnostic Data Chest x-ray is unremarkable. EKG shows a sinus rhythm with nonspecific ST segment changes. Right bundle-branch block. Moderate ST segment changes non indicative of ischemia Labs Test 07/15/24 08:02 07/15/24 06:45 07/15/24 03:14 07/14/24 22:05 Range/Units Troponin I High Sensitivity 153 *H </=54 ng/L POC Glucose 119 H 70-106 mg/dl White Blood Count 5.8 4.4-10.8 10^3/uL Red Blood Count 2.43 L 4.5-5.90 10^6/uL Hemoglobin 7.5 L 13.5-17.5 g/dL Hematocrit 22.9 L 41.0-53.0 % Mean Corpuscular Volume 94.4 80.0-100.0 fL Mean Corpuscular Hemoglobin 31.1 28.0-32.0 pg Mean Corpuscular Hemoglobin Concent 32.9 32.0-36.0 g/dL Red Cell Distribution Width 15.6 H 11.8-14.3 % Platelet Count 157 140-450 10^3/uL Mean Platelet Volume 8.2 6.9-10.8 fL Neutrophils (%) (Auto) 59.7 37.0-80.0 % Lymphocytes (%) (Auto) 26.2 10.0-50.0 % Monocytes (%) (Auto) 8.7 0.0-12.0 % Eosinophils (%) (Auto) 4.2 0.0-7.0 % Basophils (%) (Auto) 1.2 0.0-2.0 % Neutrophils # (Auto) 3.5 1.6-8.6 10 ^3/uL Lymphocytes # (Auto) 1.5 0.4-5.4 10 ^3/uL Monocytes # (Auto) 0.5 0-1.3 10 ^3/uL Eosinophils # (Auto) 0.2 0-0.8 10 ^3/uL Basophils # (Auto) 0.1 0-0.2 10 ^3/uL Nucleated Red Blood Cells 0.1 % Sodium Level 140 136-145 mmol/L Potassium Level 4.8 3.5-5.1 mmol/L Chloride Level 107 98-107 mmol/L Carbon Dioxide Level 25 20-31 mmol/L Anion Gap 8 5-15 Blood Urea Nitrogen 20 9-23 mg/dL Creatinine 1.94 H 0.700-1.30 mg/dL Glomerular Filtration Rate Calc 36 >90 mL/min BUN/Creatinine Ratio 10.3 10.0-20.0 Serum Glucose 107 H 74-106 mg/dL Calcium Level 9.0 8.7-10.4 mg/dL Total Bilirubin 0.4 0.2-1.0 mg/dL Aspartate Amino Transferase (AST) 17 13-40 U/L Alanine Aminotransferase (ALT) 24 7-40 U/L Alkaline Phosphatase 80 46-116 U/L Total Protein 5.5 L 5.7-8.2 g/dL Albumin 3.8 3.2-4.8 g/dL Assessment Coronary artery disease. Noted history of chest pain. Recent angioplasty and stenting to the circumflex marginal. Normal left ventricular ejection fraction.Mild troponin elevation suggesting type 2 injury and/or progression of CAD doubt stent thrombosis. Plan/Recommendation Given his recurrent symptoms of chest pain in the setting of significant CAD would highly suggest cardiac catheterization. Plan discussed with: Patient NYHA Physical activity limitations: Class4(Severe)discomfort Date of Service: Jul 15, 2024 Billing Provider: ESTEPHANIE ENGLISH Sr., MD Cardiology Common Codes: 38760-[id number] INP/OBS CARE (High) ESTEPHANIE ENGLISH Sr., MD Jul 15, 2024 09:47
[2024-07-15] MEDS: PANTOPRAZOLE 40 MG/10 ML VIAL INJ IV SCH (10:29)
[2024-07-15] MEDS: ASPirin-EC 81 mg tab PO SCH (10:30)
[2024-07-15] MEDS: ATORVASTATIN 20 MG TAB PO SCH (10:30)
[2024-07-15 12:06] LABS: Hematocrit 22.4 % (41.0-53.0); Hemoglobin 7.5 g/dL (13.5-17.5)
--- NOTE | 2024-07-15 15:02 | DVHINCON2 ---
DATE OF CONSULTATION: 07/15/2024 INPATIENT GASTROENTEROLOGY CONSULTATION REFERRING PHYSICIAN: Nurse practitioner Heladio Mario. REASON FOR CONSULTATION: For anemia and blood in the stool. HISTORY OF PRESENT ILLNESS: This is a 73-year-old male. The patient has a history of coronary artery disease status post 4 vessel CABG remotely and recent angioplasty with stent placement several weeks ago. The patient also has a history of chronic AFib, is on Eliquis and is also taking aspirin and Plavix at home. The patient was admitted to the hospital earlier today for complaints of recurrent chest pain that was relieved with nitroglycerin. The patient had troponin that was elevated as well at 181. The patient has already been seen by Cardiology. The patient was noted to be anemic with hemoglobin at 7.8, subsequently 7.5 and 7.5. GI is consulted for further input. The patient denies any recent melena or hematochezia. The patient does endorse some blood in the stool. He reports that he does have hemorrhoids, but no history of constipation. The patient reports he had a colonoscopy done over 10 years ago with unremarkable findings. Currently, the patient denies any fevers or chills. Denies shortness of breath. Denies any melena. Denies unintentional weight loss. REVIEW OF SYSTEMS: Otherwise, 10 point review of systems negative. PAST MEDICAL HISTORY: * Again is noted for CAD, status post CABG. * Diabetes. * Possible AFib. * The patient is obese as well. ALLERGIES: He has no known drug allergies. FAMILY HISTORY: Negative for early GI malignancy. PHYSICAL EXAMINATION: VITAL SIGNS: His temperature is 98.3, pulse 68, blood pressure 105/54. GENERAL: The patient is otherwise alert, in no acute distress. He is obese. ABDOMEN: Soft, nondistended, nontender. HEART: Regular rate. EXTREMITIES: Lower extremities: No clubbing, cyanosis or edema. DIAGNOSTIC DATA: Currently shows WBC is 5.8, hemoglobin is 7.5, platelet is 153, BUN is 20, creatinine 1.9, troponin 181. IMPRESSION: * Anemia, etiology is likely multifactorial. The patient has chronic kidney disease. The patient is also on antiplatelets and anticoagulation therapy, so certainly chronic gastrointestinal bleeding is in the differential. His MCV is within normal limits, however. * Acute coronary syndrome and chest pain with elevated troponins. The patient is currently being evaluated by Cardiology. RECOMMENDATIONS: From GI perspective is to hold Eliquis at this time, also monitor the H and H serially and transfuse if symptomatic. Continue to workup for acute coronary syndrome with Cardiology. The patient will benefit with outpatient EGD and colonoscopy for reevaluation and further workup in 4-6 weeks upon discharge. Unless hospital course change and the patient continues to have persistent massive GI bleeding, we will need to proceed with further endoscopy workup in the hospital; however, at this time, given his non-STEMI, I would defer unless is a life or situation. Thanks for allowing me the opportunity to participate in care of this patient. MD GINGER Mchugh/SHERICE TID: [id number] RECEIPT: [id number]
[2024-07-15 18:50] LABS: Hematocrit 23.2 % (41.0-53.0); Hemoglobin 7.8 g/dL (13.5-17.5)
[2024-07-15 19:30] VITALS: PULSE 76; RESP 16; O2SAT 96
[2024-07-15 22:01] VITALS: BP 150/72; PULSE 80; PULSE 87; RESP 16; RESP 19; TEMP 98; O2SAT 95; O2SAT 96
[2024-07-15] MEDS: NITROGLYCERIN 0.4 MG SL TAB SL PRN (23:11)
--- NOTE | 2024-07-15 23:12 | ECG ---
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
[2024-07-16] VITALS (18 sets, daily range): BP systolic 120–148; BP diastolic 59–83; PULSE 47–125; RESP 11–22; TEMP 98.1–98.7; O2SAT 92–100
[2024-07-16] MEDS: MORPHINE SULFATE INJ 2 MG/ml SYRG IV PRN (01:05)
[2024-07-16] MEDS ORDERED: NTG 0.1MG/HR TOPICAL PATCH TD ONE (02:07)
[2024-07-16] MEDS: NTG 0.1MG/HR TOPICAL PATCH TD ONE (02:12)
[2024-07-16 07:09] LABS: Basophils # (auto) 0 10 ^3/uL (0-0.2); Basophils % (auto) 0.6 % (0.0-2.0); Eosinophils # (auto) 0.1 10 ^3/uL (0-0.8); Eosinophils % (auto) 2.3 % (0.0-7.0); Hematocrit 22.3 % (41.0-53.0); Hemoglobin 7.4 g/dL (13.5-17.5); Lymphocytes # (auto) 1.2 10 ^3/uL (0.4-5.4); Lymphocytes % (auto) 18.3 % (10.0-50.0); Mean Corpuscular Hemoglobin 31.3 pg (28.0-32.0); Mean Corpuscular Hgb Conc. 33.1 g/dL (32.0-36.0); Mean Corpuscular Volume 94.7 fL (80.0-100.0); Monocytes # (auto) 0.5 10 ^3/uL (0-1.3); Monocytes % (auto) 8.1 % (0.0-12.0); Neutrophils # (auto) 4.6 10 ^3/uL (1.6-8.6); Neutrophils % (auto) 70.7 % (37.0-80.0); Nucleated Red Blood Cells % 0.1 %; Platelet Count (auto) 170 10^3/uL (140-450); Red Blood Cells 2.36 10^6/uL (4.5-5.90); Red Cell Distribution Width 15.5 % (11.8-14.3); White Blood Cell 6.5 10^3/uL (4.4-10.8)
[2024-07-16 07:13] LABS: Anion Gap 7 (5-15); Carbon Dioxide 26 mmol/L (20-31); Potassium 4.6 mmol/L (3.5-5.1); Sodium 140 mmol/L (136-145)
[2024-07-16 07:14] LABS: Calcium 9.3 mg/dL (8.7-10.4)
[2024-07-16 07:16] LABS: Chloride 107 mmol/L (98-107)
[2024-07-16 07:19] LABS: BUN/Creatinine Ratio 11.8 (10.0-20.0); Blood Urea Nitrogen 16 mg/dL (9-23)
[2024-07-16 07:22] LABS: Glucose 159 mg/dL (74-106)
--- NOTE | 2024-07-16 11:47 | ECG ---
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
[2024-07-16] MEDS: LIDOCAINE 2%HCL (LOCAL ANESTH.) INJ 20ML MDV ONE (11:58)
[2024-07-16] MEDS: ANGIOMAX 250 MG VIAL IV ONE (11:58)
[2024-07-16] MEDS: fentaNYL CITRATE 100 MCG/2 ML VL ONE ×2 (11:58→12:57)
[2024-07-16] MEDS: SODIUM CHL 0.9% 50 ML ONE (11:58)
[2024-07-16] MEDS: MIDAZOLAM HCL 2MG/2ML 2ml VIAL (1mg/ml) ONE ×2 (11:58→12:57)
[2024-07-16] MEDS: IODIXANOL 320MG/ML 100ML BTL IV ONE ×2 (12:04→12:45)
[2024-07-16] MEDS: CLOPIDOGREL BISULFATE 75 MG TAB ONE ×3 (12:50→13:29)
[2024-07-16] MEDS: EPINEPHrine HCL 1 MG/10 ML SYRG ONE (12:53)
[2024-07-16] MEDS: ATROPINE SULF 1 MG/10ml SYR ONE (12:53)
--- NOTE | 2024-07-16 13:14 | DVHOP2 ---
Operative Report - 2 Report Details Date: 07/16/24 Preop Diagnosis: CAD Postop Diagnosis: Successful PTCA and stenting of left main LAD diagonal Surgeon: Estephanie Kearney MD Anesthesiologist: Conscious sedation Anesthesia: Mac, Local Consent: The patient was informed of the risks and benefits of the procedure. These include but are not limited to complications of anesthesia, postoperative infection, incomplete relief of symptoms, recurrence of symptoms, damage to blood vessels, nerves and tendons, deep venous thrombosis, pulmonary embolism and possible need for repeat surgery in the future. Complications: No complication Estimated Blood Loss: 5 cc Findings: CAD Indications for Surgery: Chest pain Name of Procedure Performed Bilateral cine coronary angiography. Visualization of saphenous venous grafts and left internal mammary artery. Left heart catheterization. Procedure Details Procedure Details: Prior local anesthesia with 2% lidocaine to the right groin under fluoroscopic and ultrasound guidance we placed a six Wallisian sheath into the right femoral artery. This was a long 24 cm sheath. We placed it with a Amplatz wire since there was tortuosity and fibrosis in the proximal femoral artery. There was an old per Lapping bifem graft. We then placed a coronary bypass to evaluate the RCA and saphenous grafts as well as left internal mammary artery. A three five EBU was then used to cannulate the left main successfully. Ventriculography was not performed. Left heart catheterization was performed with a three five EBU guide. No complications. PTCA and stenting as noted. Hemodynamics aortic blood pressure was 130/70. End-diastolic pressure was 18 without a gradient across the aortic valve on pullback. Coronary anatomy the RCA is 100% occluded proximally. The left main has a proximal ostial 40% and a distal 99% stenosis. Competitive flow seen to the circumflex from a saphenous venous graft recently stented. There is minimal flow to a diagonal artery from the left anterior descending that has been bypass with an internal mammary artery. The saphenous graft to the distal RCA is patent. Minimal flow noted to the PDA and posterolateral branch given the small vessels. The saphenous graft to the posterolateral branches patent this has previously been stented. There was retrograde filling of the distal circumflex as well. Left internal mammary artery was patent of the LAD with minimal retrograde filling of a diagonal vessel. It appears that there was diminished flow to the diagonal vessel for which we placed a three five EBU guide and placed a Specter wire across the area of stenosis and took a 2-0 noncompliant balloon and pre-dilated the left main and LAD into the diagonal vessel. We then placed a 225 by 15 mm stent across the left main and a two five by 12 into the LAD across into the diagonal vessel. These were inflated at high pressures 20 atmospheres. Post dilatation stenting of the proximal left main LAD was also performed with the same two five balloon. There was notably improved flow to the diagonal vessel. Impression normal left ventricular end-diastolic pressure at rest. Patent saphenous graft to the marginal patent saphenous graft to the PDA/RCA. Patent left internal mammary artery to the LAD. Successful PTCA and stenting of the left main into the diagonal vasculature as well as proximal LAD. We could not find the 4th saphenous graft. Pressure was held in the right groin. Recommendations continue dual antiplatelet therapy and lipid-lowering therapy. Condition Fair Disposition Still a Patient Date of Service: Jul 16, 2024 Billing Provider: ESTEPHANIE KEARNEY Sr., MD Cardiology Common Codes: 10623-DUBJMQF INP/OBS CARE (High) Cardiology Procedure Codes: 22108-O/R & L HEART CATH FOR LVG, 06242-E/R & L HEART CATH W/BYPASS ESTEPHANIE KEARNEY Sr., MD Jul 16, 2024 13:14
--- NOTE | 2024-07-16 17:08 | DVHPN2 ---
Progress Note - Dictate Date Seen: Jul 16, 2024 Medical Necessity Reason Pt with a Central, PICC or Fol: No Subjective Underwent a coronary angiogram with stent placements this afternoon. Continued on dual antiplatelet therapy. Stable at present. vital signs Vital Sign Date Time Temp Pulse Resp B/P (MAP) Pulse Ox O2 Delivery O2 Flow Rate FiO2 07/16/24 16:40 98.4 82 21 139/67 (91) 97 98.4 07/15/24 22:01 Room Air* 0 21 Total Intake and Output 07/15/24 07/15/24 07/16/24 15:00 23:00 07:00 Intake Total 0 ml Balance 0 ml medications Current Medications Medications Dose Ordered Sig/Phuong Route Start Time Stop Time Status Last Admin Dose Admin Diagnostic Test (Pha) 1 strip ACHS 07/15/24 07:00 07/16/24 13:32 1 STRIP Insulin Human Regular ACHS SC 07/15/24 07:00 07/16/24 13:39 2 UNITS Dextrose 50 ml UD PRN IV 07/15/24 01:30 Pantoprazole Sodium 40 mg DAILY IV 07/15/24 10:00 07/15/24 10:29 40 MG Atorvastatin Calcium 80 mg DAILY PO 07/15/24 10:00 07/15/24 10:30 80 MG Aspirin 81 mg DAILY PO 07/15/24 10:00 07/15/24 10:30 81 MG Docusate Sodium 100 mg BIDPRN PRN PO 07/15/24 01:30 Acetaminophen 650 mg Q6HP PRN PO 07/15/24 01:30 Acetaminophen/ Hydrocodone Bitart 1 tab Q6HP PRN PO 07/15/24 01:30 Ondansetron HCl 4 mg Q4HP PRN IV 07/15/24 01:30 Nitroglycerin 0.4 mg Q5MINP PRN SL 07/15/24 01:30 07/16/24 00:03 0.4 MG Morphine Sulfate 2 mg Q30M PRN IV 07/15/24 01:30 07/16/24 09:13 2 MG Clopidogrel Bisulfate 75 mg DAILY PO 07/17/24 10:00 objective Back from coronary angiogram. HEENT neck supple no JVD. Heart regular rate and rhythm S1-S2. Lungs fair air movement without rales wheezes. Abdomen soft positive bowel sounds nontender. Extremities no edema. laboratory and microbiology Laboratory Tests 07/16/24 05:57 Test 07/16/24 05:57 Range/Units Serum Glucose 159 H 74-106 mg/dL Assessment/Plan Continue dual antiplatelet therapy and statin and other cardiac medications overnight. If he remains stable consider discharge home in the morning. Discussed with the nurse regarding care plan. Problems(with codes): (1) Unstable angina (2) Anemia (3) Renal failure (4) Elevated troponin Plan discussed with: Other VIVIANA GOODRICH MD Jul 16, 2024 17:08
[2024-07-17 01:00] VITALS: BP 134/55; PULSE 107; RESP 18; TEMP 99.2; O2SAT 95
[2024-07-17 05:00] VITALS: BP 138/60; PULSE 105; RESP 18; TEMP 98.6; O2SAT 96
[2024-07-17 07:12] LABS: Basophils # (auto) 0 10 ^3/uL (0-0.2); Basophils % (auto) 0.6 % (0.0-2.0); Eosinophils # (auto) 0 10 ^3/uL (0-0.8); Eosinophils % (auto) 0.6 % (0.0-7.0); Hematocrit 22.4 % (41.0-53.0); Hemoglobin 7.5 g/dL (13.5-17.5); Lymphocytes # (auto) 0.9 10 ^3/uL (0.4-5.4); Lymphocytes % (auto) 11.7 % (10.0-50.0); Mean Corpuscular Hemoglobin 30.8 pg (28.0-32.0); Mean Corpuscular Hgb Conc. 33.3 g/dL (32.0-36.0); Mean Corpuscular Volume 92.4 fL (80.0-100.0); Monocytes # (auto) 0.7 10 ^3/uL (0-1.3); Monocytes % (auto) 8.6 % (0.0-12.0); Neutrophils # (auto) 6.1 10 ^3/uL (1.6-8.6); Neutrophils % (auto) 78.5 % (37.0-80.0); Platelet Count (auto) 171 10^3/uL (140-450); Red Blood Cells 2.43 10^6/uL (4.5-5.90); Red Cell Distribution Width 15.7 % (11.8-14.3); White Blood Cell 7.7 10^3/uL (4.4-10.8)
[2024-07-17 07:24] LABS: Calcium 9.2 mg/dL (8.7-10.4); Chloride 107 mmol/L (98-107); Potassium 4.3 mmol/L (3.5-5.1); Sodium 139 mmol/L (136-145)
[2024-07-17 07:25] LABS: Anion Gap 8 (5-15); Carbon Dioxide 24 mmol/L (20-31)
[2024-07-17 07:31] LABS: BUN/Creatinine Ratio 13.3 (10.0-20.0); Blood Urea Nitrogen 18 mg/dL (9-23)
[2024-07-17 07:32] LABS: Glucose 198 mg/dL (74-106)
[2024-07-17 08:30] VITALS: PULSE 107; PULSE 67; RESP 20; O2SAT 97
[2024-07-17 08:56] VITALS: BP 110/89; PULSE 67; RESP 20; TEMP 98.1; O2SAT 97
[2024-07-17] MEDS: CLOPIDOGREL BISULFATE 75 MG TAB PO SCH (11:17)
[2024-07-17 12:36] VITALS: BP 126/53; PULSE 98; RESP 20; TEMP 98.9; O2SAT 96
--- NOTE | 2024-07-17 13:11 | DVHPN2 ---
Consult Progress Note Date Seen: Jul 17, 2024 Subjective Patient reports: Feels better Review of Systems: HEENT:Normal, CVS:Normal, RESPIRATORY:Normal, GI:Normal, :Normal, MSK:Normal, NEURO:Normal Objective vital signs Vital Sign Date Time Temp Pulse Resp B/P (MAP) Pulse Ox O2 Delivery O2 Flow Rate FiO2 07/17/24 12:36 98.9 98 20 126/53 (77) 96 98.9 07/16/24 20:17 Room Air* 0 21 Total Intake and Output 07/16/24 07/16/24 07/17/24 15:00 23:00 07:00 Intake Total 0 ml 1100 ml Output Total 1000 ml Balance -1000 ml 1100 ml medications Current Medications Medications Dose Ordered Sig/Phuong Route Start Time Stop Time Status Last Admin Dose Admin Diagnostic Test (Pha) 1 strip ACHS 07/15/24 07:00 07/17/24 11:42 1 STRIP Insulin Human Regular ACHS SC 07/15/24 07:00 07/17/24 11:30 3 UNITS Dextrose 50 ml UD PRN IV 07/15/24 01:30 Pantoprazole Sodium 40 mg DAILY IV 07/15/24 10:00 07/17/24 11:16 40 MG Atorvastatin Calcium 80 mg DAILY PO 07/15/24 10:00 07/17/24 11:17 80 MG Aspirin 81 mg DAILY PO 07/15/24 10:00 07/17/24 11:16 81 MG Docusate Sodium 100 mg BIDPRN PRN PO 07/15/24 01:30 Acetaminophen 650 mg Q6HP PRN PO 07/15/24 01:30 Acetaminophen/ Hydrocodone Bitart 1 tab Q6HP PRN PO 07/15/24 01:30 Ondansetron HCl 4 mg Q4HP PRN IV 07/15/24 01:30 Nitroglycerin 0.4 mg Q5MINP PRN SL 07/15/24 01:30 07/16/24 00:03 0.4 MG Morphine Sulfate 2 mg Q30M PRN IV 07/15/24 01:30 07/16/24 09:13 2 MG Clopidogrel Bisulfate 75 mg DAILY PO 07/17/24 10:00 07/17/24 11:17 75 MG Examination: GENERAL:Normal, HEENT:Normal, NECK:Normal, LUNGS:Normal, CVS:Normal, ABDOMEN:Normal, MSK:Normal, SKIN:Normal (Mild ecchymosis on right groin), NEURO:Normal, :Normal laboratory and microbiology Laboratory Tests 07/17/24 06:16 Test 07/17/24 06:16 Range/Units Serum Glucose 198 H 74-106 mg/dL Problem List/Assessment/Plan Problem List/Assessment/Plan Status post PTCA and stenting of the left main LAD /diagonal Discharge. Follow up in 2-3 weeks continue dual antiplatelet Plan discussed with: Patient Date of Service: Jul 17, 2024 Billing Provider: ESTEPHANIE ENGLISH Sr., MD Cardiology Common Codes: 80945-TIJ/OBS SAME DATE (Mod) ESTEPHANIE ENGLISH Sr., MD Jul 17, 2024 13:11
--- NOTE | 2024-07-17 14:03 | DVHPN2 ---
Progress Note - Dictate Date Seen: Jul 17, 2024 Medical Necessity Reason Pt with a Central, PICC or Fol: No Subjective Pt seen and examined. Denies abd pain, melena, hematochezia. vital signs Vital Sign Date Time Temp Pulse Resp B/P (MAP) Pulse Ox O2 Delivery O2 Flow Rate FiO2 07/17/24 12:36 98.9 98 20 126/53 (77) 96 98.9 07/16/24 20:17 Room Air* 0 21 Total Intake and Output 07/16/24 07/16/24 07/17/24 15:00 23:00 07:00 Intake Total 0 ml 1100 ml Output Total 1000 ml Balance -1000 ml 1100 ml medications Current Medications Medications Dose Ordered Sig/Phuong Route Start Time Stop Time Status Last Admin Dose Admin Diagnostic Test (Pha) 1 strip ACHS 07/15/24 07:00 07/17/24 11:42 1 STRIP Insulin Human Regular ACHS SC 07/15/24 07:00 07/17/24 11:30 3 UNITS Dextrose 50 ml UD PRN IV 07/15/24 01:30 Pantoprazole Sodium 40 mg DAILY IV 07/15/24 10:00 07/17/24 11:16 40 MG Atorvastatin Calcium 80 mg DAILY PO 07/15/24 10:00 07/17/24 11:17 80 MG Aspirin 81 mg DAILY PO 07/15/24 10:00 07/17/24 11:16 81 MG Docusate Sodium 100 mg BIDPRN PRN PO 07/15/24 01:30 Acetaminophen 650 mg Q6HP PRN PO 07/15/24 01:30 Acetaminophen/ Hydrocodone Bitart 1 tab Q6HP PRN PO 07/15/24 01:30 Ondansetron HCl 4 mg Q4HP PRN IV 07/15/24 01:30 Nitroglycerin 0.4 mg Q5MINP PRN SL 07/15/24 01:30 07/16/24 00:03 0.4 MG Morphine Sulfate 2 mg Q30M PRN IV 07/15/24 01:30 07/16/24 09:13 2 MG Clopidogrel Bisulfate 75 mg DAILY PO 07/17/24 10:00 07/17/24 11:17 75 MG objective Alert BS+ laboratory and microbiology Laboratory Tests 07/17/24 06:16 Test 07/17/24 06:16 Range/Units Serum Glucose 198 H 74-106 mg/dL Assessment/Plan * Anemia, etiology is likely multifactorial. The patient has chronic kidney disease. The patient is also on antiplatelets and anticoagulation therapy, so certainly chronic gastrointestinal bleeding is in the differential. His MCV is within normal limits, however. * Acute coronary syndrome and chest pain with elevated troponins. The patient is currently being evaluated by Cardiology. s/p repeat PCI and coronary interventions. Rec: Cont to monitor for Gi bleeding while on ASA/Plavix. The patient will benefit with outpatient EGD and colonoscopy for reevaluation and further workup in 4-6 weeks upon discharge. d/w pt and at bedside Plan discussed with: Patient NATALI ZHANG MD Jul 17, 2024 14:03
[2024-07-17] MEDS ORDERED: DRON400T PO (14:41)
[2024-07-17] MEDS ORDERED: ATOR-47 PO (14:41)
[2024-07-17] MEDS ORDERED: APIX5TAB PO (14:41)
[2024-07-17] MEDS ORDERED: FERR-7 PO (14:41)
[2024-07-17] MEDS ORDERED: CLOP75TA28 PO (14:41)
[2024-07-17] MEDS ORDERED: PANT40TA57 PO (14:41)
--- NOTE | 2024-07-17 14:43 | DVHDS2 ---
Discharge Summary Date of Admission Jul 15, 2024 at 01:22 Date of Discharge: Jul 17, 2024 Labs/Diagnostic Data: Laboratory Results Test 07/17/24 11:29 07/17/24 06:16 07/16/24 14:55 07/15/24 12:23 POC Glucose 189 mg/dl (70-106) White Blood Count 7.7 10^3/uL (4.4-10.8) Red Blood Count 2.43 10^6/uL (4.5-5.90) Hemoglobin 7.5 g/dL (13.5-17.5) Hematocrit 22.4 % (41.0-53.0) Mean Corpuscular Volume 92.4 fL (80.0-100.0) Mean Corpuscular Hemoglobin 30.8 pg (28.0-32.0) Mean Corpuscular Hemoglobin Concent 33.3 g/dL (32.0-36.0) Red Cell Distribution Width 15.7 % (11.8-14.3) Platelet Count 171 10^3/uL (140-450) Mean Platelet Volume 8.2 fL (6.9-10.8) Neutrophils (%) (Auto) 78.5 % (37.0-80.0) Lymphocytes (%) (Auto) 11.7 % (10.0-50.0) Monocytes (%) (Auto) 8.6 % (0.0-12.0) Eosinophils (%) (Auto) 0.6 % (0.0-7.0) Basophils (%) (Auto) 0.6 % (0.0-2.0) Neutrophils # (Auto) 6.1 10 ^3/uL (1.6-8.6) Lymphocytes # (Auto) 0.9 10 ^3/uL (0.4-5.4) Monocytes # (Auto) 0.7 10 ^3/uL (0-1.3) Eosinophils # (Auto) 0 10 ^3/uL (0-0.8) Basophils # (Auto) 0 10 ^3/uL (0-0.2) Nucleated Red Blood Cells 0.0 % Sodium Level 139 mmol/L (136-145) Potassium Level 4.3 mmol/L (3.5-5.1) Chloride Level 107 mmol/L (98-107) Carbon Dioxide Level 24 mmol/L (20-31) Anion Gap 8 (5-15) Blood Urea Nitrogen 18 mg/dL (9-23) Creatinine 1.35 mg/dL (0.700-1.30) Glomerular Filtration Rate Calc 55 mL/min (>90) BUN/Creatinine Ratio 13.3 (10.0-20.0) Serum Glucose 198 mg/dL (74-106) Calcium Level 9.2 mg/dL (8.7-10.4) Troponin I High Sensitivity 270 ng/L (</=54) Stool Occult Blood Positive (Negative) Stool Occult Blood Sample #3 (Negative) Test 07/14/24 22:05 Total Bilirubin 0.4 mg/dL (0.2-1.0) Aspartate Amino Transferase (AST) 17 U/L (13-40) Alanine Aminotransferase (ALT) 24 U/L (7-40) Alkaline Phosphatase 80 U/L (46-116) Total Protein 5.5 g/dL (5.7-8.2) Albumin 3.8 g/dL (3.2-4.8) Other Laboratory Tests 07/17/24 06:16 Brief Hx & Hospital Course: 73-year-old male with past medical history of HLD, hypertension, DM, PTCA and stenting of the saphenous graft on June 26, 2024 presents with complaints of substernal chest pain radiating to the left jaw x1 day. Patient states he was asleep and suddenly woke up with a chest pain. On arrival to the emergency department chest pain was 7/10. However has improved at this time after being treated with sublingual nitroglycerin. Patient endorsed that he has been compliant with his medications and follows up with video clerk Dr. Kearney. Recently started on DAPT. During the emergency department evaluation troponins are noted to be elevated 135/131/154. And also found to be anemic with a hemoglobin 7.8. Patient states last colonoscopy was about15 years ago. Also states he does not have formed stools. States he has "blowout" with dark loose stool. At this time patient denies any fevers, chills, dizziness, shortness of breath, palpitations, nausea, vomiting, hematemesis, hematuria. He is admitted and evaluated by tele tech as well as video clerk. Hemoglobin remained stable around 7.5. Patient advised to continue home iron as he is taking. Patient underwent a coronary angiogram with cardiac stent placements. Patient is started on dual antiplatelet therapy. Patient apparently already takes Eliquis as well as aspirin and Plavix at home. However given his anemia patient is advised to stop aspirin and continue Eliquis and Plavix given his coronary artery disease with stent placement. The risks benefits of bleeding versus coronary artery disease, alternatives discussed with the patient. At present it is felt that the risks of bleeding with the three blood thinners out with the benefits therefore he has agreed to continue Plavix and Eliquis and withhold aspirin. Patient however is advised to follow up with Dr. Storm his video clerk next week to make further evaluation and manage his heart problems and adjust blood thinners as deemed appropriate. I have talked with the patient regarding this over the phone given patient left against medical advice earlier this afternoon prior to my physical evaluation. I have sent in the prescriptions to his pharmacy that he requested. Patient verbalized understanding of his medications and agree to to see his video clerk as mentioned. Operations or Procedures Operative Report - 2 Report Details Date: 07/16/24 Preop Diagnosis: CAD Postop Diagnosis: Successful PTCA and stenting of left main LAD diagonal Surgeon: José Miguel Kearney MD Anesthesiologist: Conscious sedation Anesthesia: Mac, Local Consent: The patient was informed of the risks and benefits of the procedure. These include but are not limited to complications of anesthesia, postoperative infection, incomplete relief of symptoms, recurrence of symptoms, damage to blood vessels, nerves and tendons, deep venous thrombosis, pulmonary embolism and possible need for repeat surgery in the future. Complications: No complication Estimated Blood Loss: 5 cc Findings: CAD Indications for Surgery: Chest pain Name of Procedure Performed Bilateral cine coronary angiography. Visualization of saphenous venous grafts and left internal mammary artery. Left heart catheterization. Procedure Details Procedure Details: Prior local anesthesia with 2% lidocaine to the right groin under fluoroscopic and ultrasound guidance we placed a six Japanese sheath into the right femoral artery. This was a long 24 cm sheath. We placed it with a Amplatz wire since there was tortuosity and fibrosis in the proximal femoral artery. There was an old per Lapping bifem graft. We then placed a coronary bypass to evaluate the RCA and saphenous grafts as well as left internal mammary artery. A three five EBU was then used to cannulate the left main successfully. Ventriculography was not performed. Left heart catheterization was performed with a three five EBU guide. No complications. PTCA and stenting as noted. Hemodynamics aortic blood pressure was 130/70. End-diastolic pressure was 18 without a gradient across the aortic valve on pullback. Coronary anatomy the RCA is 100% occluded proximally. The left main has a proximal ostial 40% and a distal 99% stenosis. Competitive flow seen to the circumflex from a saphenous venous graft recently stented. There is minimal flow to a diagonal artery from the left anterior descending that has been bypass with an internal mammary artery. The saphenous graft to the distal RCA is patent. Minimal flow noted to the PDA and posterolateral branch given the small vessels. The saphenous graft to the posterolateral branches patent this has previously been stented. There was retrograde filling of the distal circumflex as well. Left internal mammary artery was patent of the LAD with minimal retrograde filling of a diagonal vessel. It appears that there was diminished flow to the diagonal vessel for which we placed a three five EBU guide and placed a Specter wire across the area of stenosis and took a 2-0 noncompliant balloon and pre-dilated the left main and LAD into the diagonal vessel. We then placed a 225 by 15 mm stent across the left main and a two five by 12 into the LAD across into the diagonal vessel. These were inflated at high pressures 20 atmospheres. Post dilatation stenting of the proximal left main LAD was also performed with the same two five balloon. There was notably improved flow to the diagonal vessel. Impression normal left ventricular end-diastolic pressure at rest. Patent saphenous graft to the marginal patent saphenous graft to the PDA/RCA. Patent left internal mammary artery to the LAD. Successful PTCA and stenting of the left main into the diagonal vasculature as well as proximal LAD. We could not find the 4th saphenous graft. Pressure was held in the right groin. Recommendations continue dual antiplatelet therapy and lipid-lowering therapy. Condition Fair Condition at Discharge: Fair Final Diagnosis/Problems List Successful PTCA and stenting of left main LAD diagonal Discharge Disposition: AMA Discharge Instruct/Medications New Medications: Pantoprazole Sodium Sesquihydr (Pantoprazole Sodium Dr) 40 Mg Tab 40 MG PO DAILY, #60 TAB Continued Medications: Apixaban Base (Eliquis) 5 Mg Tab 5 MG PO BID for CHEST PAIN, S/P CABG, #30 TAB (This prescription has been renewed) Ascorbic Acid (Vitamin C Tablet) 500 Mg Tb 2 TAB PO DAILY, #30 TAB 3 Refills Atorvastatin Calcium (Atorvastatin Calcium) 80 Mg Tab 1 TAB PO DAILY, #30 TAB 5 Refills (This prescription has been renewed) B-Complex Vitamins (B-Complex) Cap 1 OR DAILY, CAP Carvedilol (Carvedilol) 12.5 Mg Tab 12.5 MG PO BID for HTN, MG Cholecalciferol (Vitamin D3) 5,000 Unit Cap 5000 UNIT PO 2XW, CAP Clonidine Hydrochloride (Clonidine Hcl) 0.1 Mg Tab 0.1 MG PO BID for HTN, MG Clopidogrel Bisulfate (Plavix) 75 Mg Tab 1 TAB PO DAILY for new stent, #90 TAB 1 Refill (This prescription has been renewed) Dronedarone Hydrochloride (Multaq) 400 Mg Tab 1 TAB PO BID, #180 TAB 1 Refill (This prescription has been renewed) Ferrous Sulfate (Iron) 325 Mg Tab 325 MG PO S,W,F, #30 TAB (This prescription has been renewed) Fish Oil (Fish Oil) 1,200 Mg Cap 1200 MG PO, CAP Furosemide (Furosemide) 40 Mg Tab 40 MG PO DAILY for EDEMA Gabapentin (Gabapentin) 600 Mg Tab 600 MG PO BID for NEUROPATHY, MG Hydralazine Hcl (Hydralazine Hcl) 10 Mg Tab 10 MG PO BID for HTN, MG Insulin NPH Isophane & Reg (Hu (Novolin 70/30 (70-30) 100 Unit/ml) 1 Inj Inj 45 IU SC BID for DIABETES, INJ Lisinopril (Lisinopril) 10 Mg Tab 10 MG PO DAILY for HTN for 30 Days, MG Patients Own Medication (Patients Own Medication) . 150 PO DAILY for IMMUNO PTS OWN MED-OBTAIN FROM PT AND SEND TO RX DRUG: FREQ: RX# EXP: DATE DISP: TECH: RPH: Potassium Chloride (Potassium Chloride ER) 20 Meq Tab 20 MEQ PO EOD, TAB Zinc Gluconate (Zinc) 50 Mg Tab 50 MG PO S,W,F, TAB Discontinued Medications: Aspirin (Aspir-Low) 81 Mg Tab 81 MG PO DAILY for new stent for 30 Days, MG Discharge Statement: "Patient was advised to return to the ER or call 911 if any headaches, dizziness, shortness of breath, chest pain, abdominal pain, bleeding, fevers, or worsening of medical condition. Patient was counseled about treatment plan, medications, possible side effects, patientverbalized understanding. All questions were answered to the best of my ability. This discharge took greater then 30 minutes in planning, reviewing documentation, counseling the patient, and discussing with other team members." ASSESSMENT ASSESSMENT Assessment Successful PTCA and stenting of left main LAD diagonal VIVIANA GOODRICH MD Jul 17, 2024 14:43
--- NOTE | 2024-07-17 15:31 | DVHSR ---
APPROVED REPORT EXAM: Two-dimensional and M-mode echocardiogram with Doppler and color Doppler. Blood Pressure: 113/38 mmHg INDICATION Chest Pain RISK FACTORS Height: 68, Weight: 251 DIMENSIONS LVDd (3.8-5.7cm)LA (2D)4.6 (1.9-4.0cm)Aortic Root3.5 (2.0-3.7cm) LVDs (2.5-4.0cm)LA (MM) (1.9-4.0cm)Aortic Cusp Exc1.0 (1.5-2.0cm) EF (%) 50.0 (55-70%)Rt. Atrium4.7 (1.9-4.0cm)Asc. Aorta cm Mitral Valve MitralMitral Stenosis E wave1.51m/sMV Mean GR.3mmHg A wave1.17m/sMV Peak GR.145mmHg E/A ratio1.32D MVAcm2 DECEL [id number] 1/2 Timems Aortic Valve Aortic ValveAortic Stenosis V11.03m/Mattie Mean GR.30mmHg V23.63m/Mattie Peak GR.53mmHg LVOT Diameter2.0 (1.8-2.4cm)Doppler AVA0.89cm2 Pulmonic Valve V20.94m/s Tricuspid Valve TR Velocity2.77m/s [id number] Other Information Technically limited study due to body habitus. Conclusion Technically good study. Difficult acoustic windows. Left atrial enlargement. Concentric LVH. Aortic sclerosis. Decreased excursion of the aortic leaflets. The mitral and tricuspid are structur ally normal. EF 50% with normal RV function. There is a gradient from 40-60 mm across the aortic valve with a mean gradient of 30 consistent with moderate aortic stenosis however discrepancies from an angiographic evaluation has been noted. Pleas e refer to notes pertaining to heart catheterization. Mild TR. Valve area by echocardiogram of the aortic valve at 0.89 cm2. No pericardial effusion masses or vegetations.
== END 2024-07-17 14:22 | disposition left against medical advice (07) | DRG 322 ==
LOC: ER 21:56 → TELE 07-15 01:22 → TELE-WESTW 07-15 22:00
PROVIDERS: ADMIT Nurse Practitioner Family; ATTEND Nurse Practitioner Family
PROC: 027135Z Dilation of Coronary Artery, Two Arteries with Two Drug-eluting Intraluminal Devices, Percutaneous Approach (ICD-10-PCS; principal; 2024-07-16)
PROC: 4A023N7 Measurement of Cardiac Sampling and Pressure, Left Heart, Percutaneous Approach (ICD-10-PCS; 2024-07-16)
PROC: B213YZZ Fluoroscopy of Multiple Coronary Artery Bypass Grafts using Other Contrast (ICD-10-PCS; 2024-07-16)
PROC: B211YZZ Fluoroscopy of Multiple Coronary Arteries using Other Contrast (ICD-10-PCS; 2024-07-16)
DX: I25.110 Atherosclerotic heart disease of native coronary artery with unstable angina pectoris (principal); N17.9 Acute kidney failure, unspecified; I48.20 Chronic atrial fibrillation, unspecified; Z53.29 Procedure and treatment not carried out because of patient's decision for other reasons; D64.9 Anemia, unspecified; E11.22 Type 2 diabetes mellitus with diabetic chronic kidney disease; E66.9 Obesity, unspecified; N18.9 Chronic kidney disease, unspecified; K64.9 Unspecified hemorrhoids; I12.9 Hypertensive chronic kidney disease with stage 1 through stage 4 chronic kidney disease, or unspecified chronic kidney disease; E78.5 Hyperlipidemia, unspecified; Z95.5 Presence of coronary angioplasty implant and graft; Z87.891 Personal history of nicotine dependence; Z95.1 Presence of aortocoronary bypass graft; Z82.49 Family history of ischemic heart disease and other diseases of the circulatory system; Z79.01 Long term (current) use of anticoagulants; Z68.37 Body mass index [BMI] 37.0-37.9, adult
CPT/HCPCS: 36415; 71045; 80048; 80053; 82270; 82962; 84484; 85014; 85018; 85025; 87081; 92928; 92929; 93005; 93306; 93459; 99152; 99291; C1874; C1887; C1894; G0378; J1815; J2250; J2470; Q9967

== ENCOUNTER 2024-07-24 10:00 | Emergency (ER) | payer OTHER ==
[2024-07-24] VITALS (10 sets, daily range): BP systolic 131–169; BP diastolic 48–113; PULSE 61–83; RESP 11–19; TEMP 98–98.4; O2SAT 95–98
[~2024-07-24] VITALS: Ht 172.7 cm; Wt 115.0 kg
[~2024-07-24 10:00] MED LIST changes: +PANT40TA57 PO
--- NOTE | 2024-07-24 10:27 | ED.PDOC ---
History of Present Illness HPI Comments 73-year-old male came to the ER because of generalized weakness. He has been feeling weak since past few days. He did go to his primary care physician office for which he had blood work. His primary care physician had called him this morning to go to the ER for possible blood transfusion. He had a stent pl acement last week at this hospital. He also had coronary artery bypass graft done in 2015. Denies chest pain. Denies any other symptoms. Time Seen by MD: 10:02 Reviewed Notes: Nurses Notes, Medications, Allergies Allergies: Uncoded Allergies: NONE (Allergy, Unknown, 06/24/24) Home Meds Active Scripts Pantoprazole Sodium Sesquihydr (Pantoprazole Sodium Dr) 40 Mg Tab, 40 MG PO DAILY, #60 TAB Prov:VIVIANA GOODRICH MD 07/17/24 Clopidogrel Bisulfate (Plavix) 75 Mg Tab, 1 TAB PO DAILY for new stent, #90 TAB 1 Refill Prov:VIVIANA GOODRICH MD 07/17/24 Ferrous Sulfate (Iron) 325 Mg Tab, 325 MG PO S,W,F, #30 TAB Prov:VIVIANA GOODRICH MD 07/17/24 Atorvastatin Calcium (ATORVASTATIN CALCIUM) 80 Mg Tab, 1 TAB PO DAILY, #30 TAB 5 Refills Prov:VIVIANA GOODRICH MD 07/17/24 Dronedarone Hydrochloride (Multaq) 400 Mg Tab, 1 TAB PO BID, #180 TAB 1 Refill Prov:VIVIANA GOODRICH MD 07/17/24 Apixaban Base (ELIQUIS) 5 Mg Tab, 5 MG PO BID for CHEST PAIN, S/P CABG, #30 TAB Prov:VIVIANA GOODRICH MD 07/17/24 Reported Medications Aspirin (Aspir-Low) 81 Mg Tab, 81 MG PO DAILY for new stent for 30 Days, MG 06/26/24 Insulin NPH Isophane & Reg (Hu (Novolin 70/30 (70-30) 100 Unit/ml) 1 Inj Inj, 45 IU SC BID for DIABETES, INJ 06/24/24 Patients Own Medication (PATIENTS OWN MEDICATION) ., 150 PO DAILY for IMMUNO PTS OWN MED-OBTAIN FROM PT AND SEND TO RX DRUG: FREQ: RX# EXP: DATE DISP: TECH: [facility]: 06/24/24 B-Complex Vitamins (B-Complex) Cap, 1 OR DAILY, CAP 06/24/24 Fish Oil (Fish Oil) 1,200 Mg Cap, 1200 MG PO, CAP 06/24/24 Potassium Chloride (Potassium Chloride ER) 20 Meq Tab, 20 MEQ PO EOD, TAB 06/24/24 Zinc Gluconate (Zinc) 50 Mg Tab, 50 MG PO S,W,F, TAB 06/24/24 Ascorbic Acid (VITAMIN C TABLET) 500 Mg Tb, 2 TAB PO DAILY, #30 TAB 3 Refills 06/24/24 Cholecalciferol (VITAMIN D3) 5,000 Unit Cap, 5000 UNIT PO 2XW, CAP 06/24/24 Clonidine Hydrochloride (Clonidine Hcl) 0.1 Mg Tab, 0.1 MG PO BID for HTN, MG 06/24/24 Gabapentin (Gabapentin) 600 Mg Tab, 600 MG PO BID for NEUROPATHY, MG 06/24/24 Carvedilol (Carvedilol) 12.5 Mg Tab, 12.5 MG PO BID for HTN, MG 06/24/24 Furosemide (Furosemide) 40 Mg Tab, 40 MG PO DAILY for EDEMA 06/24/24 Hydralazine Hcl (Hydralazine Hcl) 10 Mg Tab, 10 MG PO BID for HTN, MG 06/24/24 Lisinopril (Lisinopril) 10 Mg Tab, 10 MG PO DAILY for HTN for 30 Days, MG 06/24/24 Information Source: Patient Mode of Arrival: Ambulatory Severity: Moderate Timing: Days Duration: Since onset Past Medical History PAST MEDICAL HISTORY: CAD, DM, High Lipids, HTN Surgical History: CABG, PTCA Family History Family History: Unknown Social History Smoker: Non-Smoker, Quit Greater Than 1 Year Alcohol: Denies ETOH Use Drugs: Denies Drug Use Lives In: Home Constitutional: reports: weakness; denies: chills, diaphoresis, fatigue, fever, malaise, sweats, others EENTM: denies: blurred vision, double vision, ear bleeding, ear discharge, ear drainage, ear pain, ear ringing, eye pain, eye redness, hearing loss, mouth pain, mouth swelling, nasal discharge, nose bleeding, nose congestion, nose pain, photophobia, tearing, throat pain, throat swelling, voice changes, others Respiratory: denies: cough, hemoptysis, orthopnea, SOB at rest, shortness of b reath, SOB with excertion, stridor, wheezing, others Cardiovascular: denies: chest pain, dizzy spells, diaphoresis, Dyspnea on exertion, edema, irregular heart beat, left arm pain, lightheadedness, palpitations, PND, syncope, others Gastrointestinal: denies: abdomen distended, abdominal pain, blood streaked bowels, constipated, diarrhea, dysphagia, difficulty swallowing, hematemesis, melena, nausea, poor appetite, poor fluid intake, rectal bleeding, rectal pain, vomiting, others Genitourinary: denies: burning, dysuria, flank pain, frequency, hematuria, incontinence, penile discharge, penile sore, pain, testicle pain, testicle swelling, urgency, others Neurological: denies: dizziness, fainting, headache, left sided numbness, left sided weakness, numbness, paresthesia, pre-existing deficit, right sided numbness, right sided weakness, seizure, speech problems, tingling, tremors, weakness, others Musculoskeletal: denies: back pain, gout, joint pain, joint swelling, muscle pain, muscle stiffness, neck pain, others Integumetry: denies: bruises, change in color, change in hair/nails, dryness, laceration, lesions, lumps, rash, wounds, others Allergic/Immunocompromised: denies: Difficulty Healing, Frequent Infections, Hives, Itching, others Hematologic/Lymphatic: denies: anemia, blood clots, easy bleeding, easy bruising, swollen glands, others Endocrine: denies: excessive hunger, excessive sweating, excessive thirst, excessive urination, flushing, intolerance to cold, intolerance to heat, unexplained weight gain, unexplained weight loss, others Psychiatric: denies: anxiety, bipolar disorder, depression, hopeless, panic disorder, schizophrenia, sleepless, suicidal, others Physical Exam General Appearance: Moderate Distress HEENT: Normal ENT Inspection, Pharynx Normal, TMs Normal Neck: Full Range of Motion, Non-Tender, Normal, Normal Inspection Respiratory: Chest Non-Tender, Lungs Clear, No Accessory Muscle Use, No Respiratory Distress, Normal Breath Sounds Cardiovascular: No Edema, No JVD, No Murmur, No Gallop, Normal Peripheral Pulses, Regular Rate/Rhythm Breast Exam: Deferred Gastrointestinal: No Organomegaly, Non Tender, No Pulsatile Mass, Normal Bowel Sounds, Soft Genitalia: Deferred Pelvic: Deferred Rectal: Deferred Extremities: No calf tenderness, Normal capillary refill, Normal inspection, Normal range of motion, Non-tender, No pedal edema Musculoskeletal : Apperance: Normal Neurologic: Alert Cerebellar Function: Normal Reflexes: Normal Skin: Dry, Normal Color, Warm Peripheral Pulses: 3+ Radial (R), 3+ Radial (L) Lymphatic: No Adenopathy Was a procedure done? Was a procedure done?: No Differential Dx Considerations may include: CHF Electrolyte imbalance X-Ray, Labs, Meds, VS Vital Signs Date Time Temp Pulse Resp B/P (MAP) Pulse Ox O2 Delivery O2 Flow Rate FiO2 07/24/24 11:01 97.6 67 16 105/30 (55) 95 07/24/24 10:13 67 Lab Test 07/24/24 10:41 Range/Units White Blood Count 7.5 4.4-10.8 10^3/uL Red Blood Count 2.45 L 4.5-5.90 10^6/uL Hemoglobin 7.6 L 13.5-17.5 g/dL Hematocrit 23.6 L 41.0-53.0 % Mean Corpuscular Volume 96.1 80.0-100.0 fL Mean Corpuscular Hemoglobin 30.9 28.0-32.0 pg Mean Corpuscular Hemoglobin Concent 32.1 32.0-36.0 g/dL Red Cell Distribution Width 18.9 H 11.8-14.3 % Platelet Count 207 140-450 10^3/uL Mean Platelet Volume 8.6 6.9-10.8 fL Neutrophils (%) (Auto) 72.5 37.0-80.0 % Lymphocytes (%) (Auto) 15.3 10.0-50.0 % Monocytes (%) (Auto) 8.9 0.0-12.0 % Eosinophils (%) (Auto) 2.4 0.0-7.0 % Basophils (%) (Auto) 0.9 0.0-2.0 % Neutrophils # (Auto) 5.4 1.6-8.6 10 ^3/uL Lymphocytes # (Auto) 1.1 0.4-5.4 10 ^3/uL Monocytes # (Auto) 0.7 0-1.3 10 ^3/uL Eosinophils # (Auto) 0.2 0-0.8 10 ^3/uL Basophils # (Auto) 0.1 0-0.2 10 ^3/uL Nucleated Red Blood Cells 0.2 % Sodium Level 139 136-145 mmol/L Potassium Level 5.6 *H 3.5-5.1 mmol/L Chloride Level 104 98-107 mmol/L Carbon Dioxide Level 25 20-31 mmol/L Anion Gap 10 5-15 Blood Urea Nitrogen 24 H 9-23 mg/dL Creatinine 1.71 H 0.700-1.30 mg/dL Glomerular Filtration Rate Calc 41 >90 mL/min BUN/Creatinine Ratio 14.0 10.0-20.0 Serum Glucose 148 H 74-106 mg/dL Calcium Level 9.4 8.7-10.4 mg/dL Troponin I High Sensitivity 56 *H </=54 ng/L Current Medications Medications (Trade) Dose Ordered Sig/Phuong Route Start Time Stop Time Status Last Admin Sodium Chloride 500 ml @ 500 mls/hr Q1H ONCE IV 07/24/24 11:00 07/24/24 11:59 DC 07/24/24 11:07 Patient alert. Complaining of generalized weakness. Vitals stable. Answering all questions. Pale. He is anemic. Blood transfusion. Continue monitoring. EKG reviewed does not show any acute changes. Time of 1ST Reevaluation: 10:30 Reevaluation 1ST: Unchanged Patient Education/Counseling: Diagnosis, Treatment, Prognosis Family Education/Counseling: No Family Present Departure 1 Departure Time of Disposition: 10:31 Impression: Primary Impression: Hyperkalemia Additional Impressions: Severe anemia Demand ischemia Disposition: ADMITTED INPATIENT Admit to: Med Surg Condition: Guarded Critical Care Note Critical Care Time?: Yes (45 min-critical care time only) Critical care comment: Blood transfusion Stability Stability form required: No Heart Score Heart Score: Heart Score Response (Comments) Value History Slightly Suspicious 0 EKG Normal 0 Age >65 2 Risk Factors >3 or Hx ASHD 2 Troponin Normal limit 0 Total 4 AMITA EVANS MD Jul 24, 2024 10:27
--- NOTE | 2024-07-24 10:30 | ECG ---
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
--- NOTE | 2024-07-24 11:02 | DVH ---
CHEST RADIOGRAPH Indication: sob Technique: Single frontal view of the chest was obtained COMPARISON: XY CHEST PORTABLE on DOS: 07/14/24 FINDINGS: Lines and Tubes: Median sternotomy Lungs: Clear Pleura: No effusion. No pneumothorax. Cardiomediastinal contours: Unremarkable Bones: Unremarkable IMPRESSION: No acute disease.
[2024-07-24] MEDS: SODIUM CHLORIDE 0.9% 500 ML IV ONE (11:07)
[2024-07-24 11:13] LABS: Basophils # (auto) 0.1 10 ^3/uL (0-0.2); Basophils % (auto) 0.9 % (0.0-2.0); Eosinophils # (auto) 0.2 10 ^3/uL (0-0.8); Hematocrit 23.6 % (41.0-53.0); Hemoglobin 7.6 g/dL (13.5-17.5); Nucleated Red Blood Cells % 0.2 %; Red Blood Cells 2.45 10^6/uL (4.5-5.90)
[2024-07-24 11:15] LABS: Eosinophils % (auto) 2.4 % (0.0-7.0); Lymphocytes # (auto) 1.1 10 ^3/uL (0.4-5.4); Lymphocytes % (auto) 15.3 % (10.0-50.0); Mean Corpuscular Hemoglobin 30.9 pg (28.0-32.0); Mean Corpuscular Hgb Conc. 32.1 g/dL (32.0-36.0); Mean Corpuscular Volume 96.1 fL (80.0-100.0); Monocytes # (auto) 0.7 10 ^3/uL (0-1.3); Monocytes % (auto) 8.9 % (0.0-12.0); Neutrophils # (auto) 5.4 10 ^3/uL (1.6-8.6); Neutrophils % (auto) 72.5 % (37.0-80.0); Platelet Count (auto) 207 10^3/uL (140-450); Red Cell Distribution Width 18.9 % (11.8-14.3); White Blood Cell 7.5 10^3/uL (4.4-10.8)
[2024-07-24 11:19] LABS: Chloride 104 mmol/L (98-107); Sodium 139 mmol/L (136-145)
[2024-07-24 11:20] LABS: Anion Gap 10 (5-15); Carbon Dioxide 25 mmol/L (20-31)
[2024-07-24 11:21] LABS: Calcium 9.4 mg/dL (8.7-10.4)
[2024-07-24 11:36] LABS: Blood Urea Nitrogen 24 mg/dL (9-23); Glucose 148 mg/dL (74-106)
[2024-07-24 11:38] LABS: Potassium 5.6 mmol/L (3.5-5.1)
[2024-07-24] MEDS: ALBUTEROL SULF 2.5 MG/0.5ML(0.5%) NEB SOLN NEB ONE (12:36)
--- NOTE | 2024-07-24 14:58 | DVHINCON2 ---
Date of service: Jul 24, 2024 Reason for Consultation Outpatient follow up History of Present Illness 73-year-old male came to the ER because of generalized weakness. He has been feeling weak since past few days. He did go to his primary care physician office for which he had blood work. His primary care physician had called him this morning to go to the ER for possible blood transfusion. He had a stent placement last week at this hospital. He also had coronary artery bypass graft done in 2014. Denies chest pain. Denies any other symptoms. According to patient and his who is at bedside patient told to come to the ER by Dr. Storm his office staff due to abnormal labs. Patient himself denies any generalized weakness or dizziness or lightheadedness. Denies any chest pain shortness for breath. In the ER patient noted to have a potassium level of 5.6. Hemoglobin 7.5. Therefore he is getting blood transfusion and receiving hyperkalemia treatment. Past Medical History Coronary artery disease with a as stent placement recently. CAD, DM, High Lipids, HTN Past Surgical History CABG, PTCA Family History: Diabetes mellitus G8 MOTHER Hypertension G8 FATHER Allergies: Uncoded Allergies: NONE (Allergy, Unknown, 06/24/24) Home Meds Active Scripts Pantoprazole Sodium Sesquihydr (Pantoprazole Sodium Dr) 40 Mg Tab, 40 MG PO DAILY, #60 TAB Prov:VIVIANA GOODRICH MD 07/17/24 Clopidogrel Bisulfate (Plavix) 75 Mg Tab, 1 TAB PO DAILY for new stent, #90 TAB 1 Refill Prov:VIVIANA GOODRICH MD 07/17/24 Ferrous Sulfate (Iron) 325 Mg Tab, 325 MG PO S,W,F, #30 TAB Prov:VIVIANA GOODRICH MD 07/17/24 Atorvastatin Calcium (ATORVASTATIN CALCIUM) 80 Mg Tab, 1 TAB PO DAILY, #30 TAB 5 Refills Prov:VIVIANA GOODRICH MD 07/17/24 Dronedarone Hydrochloride (Multaq) 400 Mg Tab, 1 TAB PO BID, #180 TAB 1 Refill Prov:VIVIANA GOODRICH MD 07/17/24 Apixaban Base (ELIQUIS) 5 Mg Tab, 5 MG PO BID for CHEST PAIN, S/P CABG, #30 TAB Prov:VIVIANA GOODRICH MD 07/17/24 Reported Medications Aspirin (Aspir-Low) 81 Mg Tab, 81 MG PO DAILY for new stent for 30 Days, MG 06/26/24 Insulin NPH Isophane & Reg (Hu (Novolin 70/30 (70-30) 100 Unit/ml) 1 Inj Inj, 45 IU SC BID for DIABETES, INJ 06/24/24 Patients Own Medication (PATIENTS OWN MEDICATION) ., 150 PO DAILY for IMMUNO PTS OWN MED-OBTAIN FROM PT AND SEND TO RX DRUG: FREQ: RX# EXP: DATE DISP: TECH: RPH: 06/24/24 B-Complex Vitamins (B-Complex) Cap, 1 OR DAILY, CAP 06/24/24 Fish Oil (Fish Oil) 1,200 Mg Cap, 1200 MG PO, CAP 06/24/24 Potassium Chloride (Potassium Chloride ER) 20 Meq Tab, 20 MEQ PO EOD, TAB 06/24/24 Zinc Gluconate (Zinc) 50 Mg Tab, 50 MG PO S,W,F, TAB 06/24/24 Ascorbic Acid (VITAMIN C TABLET) 500 Mg Tb, 2 TAB PO DAILY, #30 TAB 3 Refills 06/24/24 Cholecalciferol (VITAMIN D3) 5,000 Unit Cap, 5000 UNIT PO 2XW, CAP 06/24/24 Clonidine Hydrochloride (Clonidine Hcl) 0.1 Mg Tab, 0.1 MG PO BID for HTN, MG 06/24/24 Gabapentin (Gabapentin) 600 Mg Tab, 600 MG PO BID for NEUROPATHY, MG 06/24/24 Carvedilol (Carvedilol) 12.5 Mg Tab, 12.5 MG PO BID for HTN, MG 06/24/24 Furosemide (Furosemide) 40 Mg Tab, 40 MG PO DAILY for EDEMA 06/24/24 Hydralazine Hcl (Hydralazine Hcl) 10 Mg Tab, 10 MG PO BID for HTN, MG 06/24/24 Lisinopril (Lisinopril) 10 Mg Tab, 10 MG PO DAILY for HTN for 30 Days, MG 06/24/24 Current Medications Current Medications Medications (Trade) Dose Ordered Sig/Phuong Route PRN Reason Start Time Stop Time Status Last Admin Zirconium Oxide (Lokelma) 10 gm TID PO 07/24/24 14:00 07/26/24 06:01 Review of Systems Denies any chest pain shortness for breath. No fevers chills or sweats. No headache dizziness or lightheadedness. No hematemesis or hematochezia. Normal bowel and bladder movements. Other review of systems reviewed normal. Vital Signs Vital Signs Date Time Temp Pulse Resp B/P (MAP) Pulse Ox O2 Delivery O2 Flow Rate FiO2 07/24/24 13:49 62 16 98 Room Air 07/24/24 13:49 98.1 116/41 (66) 98.1 07/24/24 12:36 0 21 21 Physical Exam Alert awake oriented x3. Comfortable in bed without distress. at bedside. Anxious to go home. HEENT neck supple no JVD pupils equal round react to light. Heart regular rate and rhythm S1 and S2 without murmurs. Lungs fair air movement chest tube will expansion no rales wheezes. Abdomen soft nontender nondistended positive bowel sounds. Extremities no edema positive pulses. Neurologically normal exam. Labs/Diagnostic Data Labs Test 07/24/24 10:41 Range/Units White Blood Count 7.5 4.4-10.8 10^3/uL Red Blood Count 2.45 L 4.5-5.90 10^6/uL Hemoglobin 7.6 L 13.5-17.5 g/dL Hematocrit 23.6 L 41.0-53.0 % Mean Corpuscular Volume 96.1 80.0-100.0 fL Mean Corpuscular Hemoglobin 30.9 28.0-32.0 pg Mean Corpuscular Hemoglobin Concent 32.1 32.0-36.0 g/dL Red Cell Distribution Width 18.9 H 11.8-14.3 % Platelet Count 207 140-450 10^3/uL Mean Platelet Volume 8.6 6.9-10.8 fL Neutrophils (%) (Auto) 72.5 37.0-80.0 % Lymphocytes (%) (Auto) 15.3 10.0-50.0 % Monocytes (%) (Auto) 8.9 0.0-12.0 % Eosinophils (%) (Auto) 2.4 0.0-7.0 % Basophils (%) (Auto) 0.9 0.0-2.0 % Neutrophils # (Auto) 5.4 1.6-8.6 10 ^3/uL Lymphocytes # (Auto) 1.1 0.4-5.4 10 ^3/uL Monocytes # (Auto) 0.7 0-1.3 10 ^3/uL Eosinophils # (Auto) 0.2 0-0.8 10 ^3/uL Basophils # (Auto) 0.1 0-0.2 10 ^3/uL Nucleated Red Blood Cells 0.2 % Sodium Level 139 136-145 mmol/L Potassium Level 5.6 *H 3.5-5.1 mmol/L Chloride Level 104 98-107 mmol/L Carbon Dioxide Level 25 20-31 mmol/L Anion Gap 10 5-15 Blood Urea Nitrogen 24 H 9-23 mg/dL Creatinine 1.71 H 0.700-1.30 mg/dL Glomerular Filtration Rate Calc 41 >90 mL/min BUN/Creatinine Ratio 14.0 10.0-20.0 Serum Glucose 148 H 74-106 mg/dL Calcium Level 9.4 8.7-10.4 mg/dL Troponin I High Sensitivity 56 *H </=54 ng/L Assessment Hyperkalemia Acute kidney injury CKD two Anemia of chronic Kidney disease Coronary artery disease status post recent stent placement At present patient does not have any acute symptoms. Patient's potassium is 5.6 however EKG does not show any significant acute pathology. Patient is receiving hyperkalemia treatment in the ER. Hemoglobin is 7.6 which is similar to his last hemoglobin when he was discharged few weeks ago after coronary artery stent placement. Patient does not give any history of active bleeding or any other symptoms. Given the cardiac history ER physician he is transfusing 1 unit of packed red blood cells in the ER. We will repeat his hemoglobin levels and potassium levels once they are corrected. If they are in normal range patient can be discharged home from ER. This is discussed with the patient and at bedside length. Patient is advised to go to [facility] urgent Care in the morning to have follow up for his hemoglobin and potassium levels as and blood pressure check. I have also discussed with the on-call medical case worker with the [facility] they will be following up with the patient and make necessary outpatient appointments and referrals as appropriate. I have also discussed with them regarding patient's home medications reviewed with the him at bedside and advised them to cut down some of the blood pressure medications given his blood pressure in the low normal range. Patient and family verbalized understanding of his hospital diagnosis, treatment he has been received, discharge instructions and agree with the discharge follow-up plan of care. Plan discussed with: Patient, Spouse VIVIANA GOODRICH MD Jul 24, 2024 14:58
[2024-07-24] MEDS: CALCIUM GLUC 1,000mg/50ml-NS 50 ML IV ONE (15:07)
[2024-07-24] MEDS: SODIUM ZIRCONIUM CYCL 10 GM PAK PO SCH (15:11)
[2024-07-24] MEDS: FUROSEMIDE 20 MG/2 ML VIAL IV ONE (15:13)
[2024-07-24] MEDS: InsuLIN REG 1unit/0.01ml Soln (100units/ml) IV ONE (15:14)
[2024-07-24] MEDS: SODIUM BICARB 8.4% 50Meq/50ml SYR INJ IV ONE (15:14)
[2024-07-24] MEDS: DEXTROSE (50%) 50ML SYRG IV ONE (15:15)
[2024-07-24] MEDS: ACETAMINOPHEN 325 MG TAB PO ONE (15:49)
[2024-07-24 18:23] LABS: Hematocrit 25.9 % (41.0-53.0); Hemoglobin 8.5 g/dL (13.5-17.5)
== END 2024-07-24 20:22 | disposition home or self-care (01) ==
LOC: ER 10:00
DX: D64.9 Anemia, unspecified (principal); E87.5 Hyperkalemia; I24.89 Other forms of acute ischemic heart disease; I25.10 Atherosclerotic heart disease of native coronary artery without angina pectoris; E11.9 Type 2 diabetes mellitus without complications; I10 Essential (primary) hypertension; R53.1 Weakness; Z95.1 Presence of aortocoronary bypass graft
CPT/HCPCS: 36415; 36430; 71045; 80048; 82962; 84132; 84484; 85014; 85018; 85025; 86850; 86900; 86901; 86920; 93005; 94640; 96365; 96375; 99291; J0613; J1815; J1940; J7042; P9016

== ENCOUNTER 2025-01-01 11:50 | Inpatient (IN) | payer OTHER ==
[2025-01-01] VITALS (11 sets, daily range): BP systolic 131–186; BP diastolic 46–84; PULSE 67–96; RESP 12–19; TEMP 97.9–99.1; O2SAT 92–96
[~2025-01-01] VITALS: Ht 172.7 cm; Wt 98.1 kg
[~2025-01-01 11:50] MED LIST changes: -ASCO500T11 PO; -ASPI-543 PO; -B COCAP OR; -CHOL50007 PO; -CLON0.1T PO; +FAMO-12 PO; -GABA-339 PO; +LEVO75TA6 PO; -LISI10TA34 PO; +LOSA-534 PO; -PANT40TA57 PO; -POTA-180 PO; -ZINC50TA7 PO
[2025-01-01] MEDS: IODIXANOL 320MG/ML 100ML BTL IV ONE ×2 (12:43→13:50)
[2025-01-01] MEDS: ANGIOMAX 250 MG VIAL IV ONE (12:46)
[2025-01-01] MEDS: HEPARIN SODIUM (PORCINE) 5000 UNITS/ML 1ML VIAL ONE ×2 (12:46→13:48)
[2025-01-01] MEDS: VERAPAMIL 2.5MG/ML INJ 2ML VIAL IV ONE (12:46)
[2025-01-01] MEDS: LIDOCAINE 2%HCL (LOCAL ANESTH.) INJ 20ML MDV ONE (12:47)
[2025-01-01] MEDS: MIDAZOLAM HCL 2MG/2ML 2ml VIAL (1mg/ml) ONE (12:47)
[2025-01-01] MEDS: fentaNYL CITRATE 100 MCG/2 ML VL ONE (12:47)
[2025-01-01] MEDS: SODIUM CHL 0.9% 50 ML ONE (12:47)
[2025-01-01] MEDS ORDERED: ATOR80TA PO (13:01)
[2025-01-01] MEDS ORDERED: CLOP75TA28 PO (13:04)
[2025-01-01] MEDS ORDERED: CHOL10009 PO (13:09)
[2025-01-01] MEDS ORDERED: ASPI-407 PO (13:10)
[2025-01-01] MEDS ORDERED: MORPHINE SULFATE INJ 2 MG/ml SYRG IV PRN (14:45)
[2025-01-01] MEDS ORDERED: NITROGLYCERIN 0.4 MG SL TAB SL PRN (14:45)
--- NOTE | 2025-01-01 15:46 | DVHHP2 ---
History of Present Illness Reason for Visit: Elective left heart catheterization. History of Present Illness 74-year-old male with a known history of CAD status post quadruple bypass in 2014, status post successful PTCA and stenting of LAD to diagonal in the beginning of June this year, status post PTCA and stenting of saphenous graft to marginal in the last week of June this year presented to the hospital with the increasing shortness a breath for almost a month. Patient was diagnosed with the aortic stenosis in the past as well. Patient was brought in by Dr. Kearney for elective heart catheterization which shows evidence of severe aortic stenosis which requires TAVR. Patient's we will be transferred to higher level of care. Patient is currently agrees to the current plan of care. Patient denies any chest pain shortness of breath at rest. But he does complaining of dyspnea on exertion only few steps he gets short of breath. Cardiovascular: AFIB, CHF, HTN, aortic stenosis Endocrine: Diabetes, Hypothyroidism Past Surgical History: CABG, Other (PTCA) Smoke: No ALCOHOL: none Review of Systems Review of Systems 12 review of system are negative besides mentioned above. Allergies: Uncoded Allergies: NONE (Allergy, Unknown, 06/24/24) Medications Current Medications Medications Dose Ordered Sig/Phuong Route Start Time Stop Time Status Last Admin Dose Admin Nitroglycerin 0.4 mg Q5MINP PRN SL 01/01/25 14:45 Morphine Sulfate 2 mg Q30M PRN IV 01/01/25 14:45 Apixaban 5 mg BID PO 01/01/25 22:00 UNV Carvedilol 12.5 mg BID PO 01/01/25 22:00 UNV Clopidogrel Bisulfate 75 mg QAM PO 01/02/25 07:00 UNV Famotidine 20 mg BID PO 01/01/25 22:00 UNV Hydralazine HCl 10 mg BID PO 01/01/25 22:00 UNV Insulin Human Isoph/Insulin Regular 45 units BID SC 01/01/25 22:00 UNV Patient Own Medication 1 tab QPM PO 01/01/25 18:00 UNV Patient Own Medication 1 cap DAILY PO 01/02/25 10:00 UNV Patient Own Medication 1 tab BID PO 01/01/25 22:00 UNV Patient Own Medication 1 tab QAM PO 01/02/25 07:00 UNV Exam Exam HEENT pupils are reactive Neck is supple CV is S1-S2 regular rate and rhythm Respiratory diminished breath sounds bases GI positive bowel sound Extremity no edema 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 Labs/Xrays Labs Test 01/01/25 14:40 Range/Units POC Glucose 164 H 70-106 mg/dl SEPSIS Sepsis Screen Physician Orders Cl Combined Rt & Lt Heart Cath (01/01/25 07:45) Admit (01/01/25 14:40) Oxygen By Nasal Cannula (01/01/25 14:40) Nitroglycerin Sublingual (Ntrostat Subli (01/01/25 14:45) Morphine Sulfate Injection (01/01/25 14:45) Notify Md Of Changes From Base (01/01/25 14:40) Rn Flight For 24 Hours (01/01/25 14:40) Emergency Dysrhythmia Protocol (01/01/25 14:40) Rhythm Strips Once Every Shift (01/01/25 14:40) * Hospitalist Consult (01/01/25 ) Admit (01/01/25 14:59) Post Cath Vital Signs Q 15min (01/01/25 ) Post Cath Activity Protocol (01/01/25 14:59) Cardiac Diet-2gna,Lofat,Lochol (01/01/25 Dinner) Flat In Bed (01/01/25 14:59) Oxygen By Nasal Cannula (01/01/25 14:59) Stat Ekg For Chest Pain (01/01/25 14:59) Notify Md Of Changes From Base (01/01/25 14:59) Rn Flight For 24 Hours (01/01/25 14:59) Emergency Dysrhythmia Protocol (01/01/25 14:59) Rhythm Strips Once Every Shift (01/01/25 14:59) * Stock Checkerer Consult (01/01/25 15:34) Apixaban (Eliquis) (01/01/25 22:00) Carvedilol Tablet (Coreg Tablet) (01/01/25 22:00) Clopidogrel Bisulfate (Plavix) (01/02/25 07:00) Famotidine Tablet (Pepcid Tablet) (01/01/25 22:00) Hydralazine Hcl Tablet (Apresoline Table (01/01/25 22:00) Insulin 70/30 (Human) (Humulin 70/30) (01/01/25 22:00) (Nf) Atorvastatin Calcium (Lipitor) (01/01/25 18:00) (Nf) Cholecalciferol (Vitamin D3) (01/02/25 10:00) (Nf) Dronedarone Hydrochloride (Multaq) (01/01/25 22:00) (Nf) Levothyroxine Sodium (01/02/25 07:00) Basic Metabolic Panel (01/01/25 15:36) Medications Medications Dose Ordered Sig/Phuong Route Start Time Stop Time Status Last Admin Dose Admin Fentanyl Citrate 100 mcg STK-MED ONCE .ROUTE 01/01/25 12:47 01/01/25 12:45 DC 01/01/25 12:47 25 MCG Heparin Sodium (Porcine) 5,000 units STK-MED ONCE .ROUTE 01/01/25 12:46 01/01/25 12:45 DC 01/01/25 12:46 2,500 UNITS Midazolam HCl 2 mg STK-MED ONCE .ROUTE 01/01/25 12:47 01/01/25 12:46 DC 01/01/25 12:47 0.5 MG Assessment/Plan Assessment/Plan 74-year-old male with a known history of CAD status post quadruple bypass, status post PTCA and stenting of LAD diagonal as well as saphenous graft to marginal in the past, chronic AFib, hypertension, dyslipidemia, hypothyroidism, insulin-dependent diabetes mellitus type 2 who was brought in by Cardiology for left heart catheterization found to have 1. Severe aortic stenosis need TAVR 2. Dyspnea on exertion secondary to above 3. CAD status post quadruple bypass in 2014 4. Status post PTCA and stenting of LAD to diagonal June 2024 5. Status post PTCA and stenting of saphenous graft to the marginal, June 2024 6. Hypertension 7. Insulin-dependent diabetes mellitus type 2 8. 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 Plan discussed with: Patient My Orders Orders - DANIS HUTCHISON MD Procedure Category Date Status Time * Stock Checkerer CONS 01/01/25 Transmitted Consult 15:34 Apixaban (Eliquis) PHA 01/01/25 Logged 22:00 Carvedilol Tablet PHA 01/01/25 Logged (Coreg Tablet) 22:00 Clopidogrel Bisulfate PHA 01/02/25 Logged (Plavix) 07:00 Famotidine Tablet PHA 01/01/25 Logged (Pepcid Tablet) 22:00 Hydralazine Hcl PHA 01/01/25 Logged Tablet (Apresoline 22:00 Insulin 70/30 (Human) PHA 01/01/25 Logged (Humulin 70/30) 22:00 (Nf) Atorvastatin PHA 01/01/25 Logged Calcium (Lipitor) 18:00 (Nf) Cholecalciferol PHA 01/02/25 Logged (Vitamin D3) 10:00 (Nf) Dronedarone PHA 01/01/25 Logged Hydrochloride (Multaq) 22:00 (Nf) Levothyroxine PHA 01/02/25 Logged Sodium 07:00 Basic Metabolic Panel LAB 01/01/25 Logged 15:36 Date of Service: Jan 01, 2025 Billing Provider: DANIS HUTCHISON MD Common Visit Codes: NOT BILLABLE DANIS HUTCHISON MD Jan 01, 2025 15:46
--- NOTE | 2025-01-01 17:08 | DVHOP2 ---
Operative Report - 2 Report Details Date: 01/01/25 Preop Diagnosis: Aortic Stenosis/CAD Postop Diagnosis: 74-year-old male with a known history of CAD status post quadruple bypass, status post PTCA and stenting of LAD diagonal as well as saphenous graft to marginal in the past, chronic AFib, hypertension, dyslipidemia, hypothyroidism, insulin-dependent diabetes mellitus type 2 who was brought in by Cardiology for left heart catheterization found to have 1. Severe aortic stenosis need TAVR 2. Dyspnea on exertion secondary to above 3. CAD status post quadruple bypass in 2014 4. Status post PTCA and stenting of LAD to diagonal June 2024 CS 5. Status post PTCA and stenting of saphenous graft to the marginal, June 2024 6. Hypertension 7. Insulin-dependent diabetes mellitus type 2 8. Hypothyroidism Absolutely what he used nystatin okay want to use that can well use like something like ketoconazole or something along those lines a guys on the on the other the ketoconazole just looking something that might be a little bit more affected want you tried the cyclops her ox it could be its shampoo for Creamer gel were solution however you Wanna given twice a day and sexually indicated for fungal of the anal fund tinea and remote arm and stealth like add tinea cruris technique right poor is it is a little bit more broad-spectrum under think it is going to be more beneficial that is a cyclops luis BURGESS RO FX you can use a cream or a gel shampoos distention I do not know that comes in a powder you might want to check with the pharmacy and see if they have a special preparation that they can neck contour. But it is should be pretty effective hemorrhage dose what was a dose of the [place] unit when I views of the past unsure you guys of probably been also exposed typically view gave of the Ativan are are or Xanax to help him get distally just put a mild like a low-dose 25 of of of Seroquel are was at the she was on low-dose while she was still getting lipids RA sure Surgeon: Estephanie Kearney MD Anesthesiologist: Conscious sedation. Anesthesia: Mac Consent: The patient was informed of the risks and benefits of the procedure. These include but are not limited to complications of anesthesia, postoperative infection, incomplete relief of symptoms, recurrence of symptoms, damage to blood vessels, nerves and tendons, deep venous thrombosis, pulmonary embolism and possible need for repeat surgery in the future. Complications: None Findings: Severe Aortic Stenosis Indications for Surgery: SOB, Severe SOB Name of Procedure Performed Right and left heart catheterization. Bilateral cine coronary angiography. Left ventriculography. Cannulation/Visualization of left internal mammary artery and coronary bypass grafts. Procedure Details Procedure Details: Prior local anesthesia with 2% lidocaine to the right groin and full informed consent obtained under fluoroscopic and ultrasound guidance we obtained access to the right femoral artery and placed six Albanian sheath into the femoral artery in into the femoral vein. We then placed a Forest-Tameka catheter into the right atrium right ventricle pulmonary artery and capillary wedge pressure positions where pressures were obtained and recorded. O2 saturations were not obtained. Cardiac outputs were determined by the thermodilution technique in triplicate. Through the femoral artery six Albanian Jj catheters were used to cannulate both right and left coronary ostia saphenous venous grafts and left internal mammary artery. A [place] catheter was used to cannulate the left ventricle and obtained simultaneous pressures in the left ventricle and the aorta. Dual transducers were used. Hemodynamics: Right atrial pressure was 19. Right ventricular pressure was 58/16. Pulmonary artery pressure was 66 over31 with a mean of 40. Capillary wedge pressure was 22. 161/22. Aortic blood pressure was 135/73. Cardiac output was 4.8 by the thermodilution technique. There was a proximally a 40-45 mm gradient peak to peak across the aortic valve. Aortic valve area was calculated at 0.7 cm2 consistent with severe aortic stenosis. Coronary anatomy: The right coronary artery is occluded proximally. Left main is large. It is normal. Left anterior descending is occluded proximally. There was a [id number] diagonal branch which is patent. There is no critical lesions in the diagonal. The circumflex has a 99% proximal stenosis it is notably calcified. Competitive flow is noted through an obtuse marginal branch. The saphenous venous graft to the PDA is patent. No retrograde flow to the proximal mid or distal RCA.. The mid PDA has a 60-70% stenosis. It appears to be noncritical. The saphenous venous graft to the obtuse marginal branches a large vessel. There was no stenosis in its proximal mid or distal segments. The obtuse marginal branch supplies the distal circumflex in retrograde fashion. There was no stenosis of the obtuse marginal and/or the circumflex in as noted via retrograde filling of the circumflex. The left internal mammary artery is patent. There was no stenosis in its proximal mid or distal segments. There is no significant disease of the left anterior descending coronary artery distal to the anastomosis. Retrograde filling of the proximal LAD is also within normal limits. The LAD is noted to be occluded proximally. Ventriculography in the EDWARDS projection shows an EF of 50-55%. Impression: Pulmonary hypertension. Severe aortic stenosis. Normal left ventricular end-diastolic pressure at rest. Normal capillary wedge pressure. Normal left ventricular function. Three-vessel coronary artery disease as delineated above. No need for revascularization. Recommendations: We will refer patient for TAVR given severe aortic stenosis and secondary pulmonary hypertension. Condition Good Disposition Acute Care Facility Date of Service: Jan 01, 2025 Billing Provider: ESTEPHANIE KEARNEY Sr., MD Cardiology Common Codes: 75576-[id number] INP/OBS CARE (High) Cardiology Procedure Codes: 51996-NQIS ADD COR ART/BRNCH/GRFT, 70761-OXWC HEART CATH W/INTRA INJ, 18782-I/L HEART CATH W/BYPASS GFT, 97640-X/R & L HEART CATH FOR LVG, 57168-R/R & L HEART CATH W/BYPASS ESTEPHANIE KEARNEY Sr., MD Jan 01, 2025 17:08
[2025-01-01 19:36] LABS: Chloride 105 mmol/L (98-107); Potassium 4.9 mmol/L (3.5-5.1); Sodium 140 mmol/L (136-145)
[2025-01-01 19:37] LABS: Anion Gap 7 (5-15); Carbon Dioxide 28 mmol/L (20-31)
[2025-01-01 19:38] LABS: Calcium 9.6 mg/dL (8.7-10.4)
[2025-01-01 19:43] LABS: Glucose 171 mg/dL (74-106)
[2025-01-01 19:49] LABS: BUN/Creatinine Ratio 13.7 (10.0-20.0); Blood Urea Nitrogen 19 mg/dL (9-23)
[2025-01-01] MEDS: CARVEDILOL 12.5 MG TAB PO SCH (21:01)
[2025-01-01] MEDS: ATORVASTATIN 20 MG TAB PO SCH (21:02)
[2025-01-01] MEDS: FAMOTIDINE 20 MG TAB PO SCH (21:02)
[2025-01-01] MEDS: APIXABAN 5 MG TAB PO SCH (21:02)
[2025-01-01] MEDS ORDERED: INSULIN 70/30 1unit/0.01ml Susp (100units/ml) SC SCH (22:00)
[2025-01-01] MEDS ORDERED: DRONEDARONE HCL 400 MG TAB PO SCH (22:00)
[2025-01-02] MEDS ORDERED: CLOPIDOGREL BISULFATE 75 MG TAB PO SCH (07:00)
[2025-01-02] MEDS ORDERED: LEVOTHYROXINE SODIUM 25 MCG TAB PO SCH (07:00)
[2025-01-02] MEDS ORDERED: CHOLECALCIFEROL (VITD3) 1,000UNIT=25mCg TAB PO SCH (10:00)
--- NOTE | 2025-01-02 13:33 | DVHDS2 ---
Discharge Summary Date of Admission Jan 01, 2025 at 14:40 Date of Discharge: Jan 01, 2025 Labs/Diagnostic Data: Laboratory Results Test 01/01/25 19:12 01/01/25 14:40 Sodium Level 140 mmol/L (136-145) Potassium Level 4.9 mmol/L (3.5-5.1) Chloride Level 105 mmol/L (98-107) Carbon Dioxide Level 28 mmol/L (20-31) Anion Gap 7 (5-15) Blood Urea Nitrogen 19 mg/dL (9-23) Creatinine 1.39 mg/dL (0.700-1.30) Glomerular Filtration Rate Calc 53 mL/min (>90) BUN/Creatinine Ratio 13.7 (10.0-20.0) Serum Glucose 171 mg/dL (74-106) Calcium Level 9.6 mg/dL (8.7-10.4) POC Glucose 164 mg/dl (70-106) Other Laboratory Tests 01/01/25 19:12 Brief Hx & Hospital Course: 74-year-old male with a known history of CAD status post quadruple bypass, status post PTCA and stenting of LAD diagonal as well as saphenous graft to marginal in the past, chronic AFib, hypertension, dyslipidemia, hypothyroidism, insulin-dependent diabetes mellitus type 2 who was brought in by Cardiology for left heart catheterization found to have aortic stenosis. Patient was recommended to have TAVR at higher level of care. Patient's symptoms were dyspnea on exertion as he was getting short of breath easily with a only few steps. Patient is currently denies any chest pain. student services dean has been consulted for higher level of care. Patient was accepted at [facility] by the Cardiothoracic Surgeons for TAVR. Condition at Discharge: Stable Final Diagnosis/Problems List 74-year-old male with a known history of CAD status post quadruple bypass, status post PTCA and stenting of LAD diagonal as well as saphenous graft to marginal in the past, chronic AFib, hypertension, dyslipidemia, hypothyroidism, insulin-dependent diabetes mellitus type 2 who was brought in by Cardiology for left heart catheterization found to have 1. Severe aortic stenosis need TAVR 2. Dyspnea on exertion secondary to above 3. CAD status post quadruple bypass in 2014 4. Status post PTCA and stenting of LAD to diagonal June 2024 CS 5. Status post PTCA and stenting of saphenous graft to the marginal, June 2024 6. Hypertension 7. Insulin-dependent diabetes mellitus type 2 8. Hypothyroidism Absolutely what he used nystatin okay want to use that can well use like something like ketoconazole or something along those lines a guys on the on the other the ketoconazole just looking something that might be a little bit more affected want you tried the cyclops her ox it could be its shampoo for Creamer gel were solution however you Wanna given twice a day and sexually indicated for fungal of the anal fund tinea and remote arm and stealth like add tinea cruris technique right poor is it is a little bit more broad-spectrum under think it is going to be more beneficial that is a cyclops rocks HEENAU larissa PI RO FX you can use a cream or a gel shampoos distention I do not know that comes in a powder you might want to check with the pharmacy and see if they have a special preparation that they can neck contour. But it is should be pretty effective hemorrhage dose what was a dose of the [place] unit when I views of the past unsure you guys of probably been also exposed typically view gave of the Ativan are are or Xanax to help him get distally just put a mild like a low-dose 25 of of of Seroquel are was at the she was on low-dose while she was still getting lipids RA sure Discharge Disposition: Acute Care Facility SNF Discharge Will this Physician continue t: No Discharge Instruct/Medications Diet: Cardiac 2g Na,low cholest Diet comment: 1999 ADA diet Activity: Bed rest Follow Up/Referral: Follow up at higher level of care with the Cardiothoracic surgery for TAVR Medications: As reconciled. Scheduled Apixaban Base (Eliquis), 1 TAB PO BID, (Reported) Atorvastatin Calcium (Lipitor), 1 TAB PO QPM, (Reported) Carvedilol (Carvedilol), 1 TAB PO BID, (Reported) Cholecalciferol (Vitamin D3), 1 CAP PO DAILY, (Reported) Clopidogrel Bisulfate (Plavix), 1 TAB PO QAM, (Reported) Dronedarone Hydrochloride (Multaq), 1 TAB PO BID, (Reported) Famotidine (Famotidine), 1 TAB PO BID, (Reported) Fish Oil (Fish Oil), 1 CAP PO DAILY, (Reported) Hydralazine Hcl (Hydralazine Hcl), 1 TAB PO BID, (Reported) Insulin NPH Isophane & Reg (Hu (Novolin 70/30 (70-30) 100 Unit/ml), 45 IU SC BID, (Reported) Levothyroxine Sodium (Levothyroxine Sodium), 1 TAB PO QAM, (Reported) Losartan Potassium (Losartan Potassium), 1 TAB PO BID, (Reported) Discontinued Medications Aspirin (Gaston Aspirin), 1 TAB PO DAILY, (Reported) Discharge Statement: "Patient was advised to return to the ER or call 911 if any headaches, dizziness, shortness of breath, chest pain, abdominal pain, bleeding, fevers, or worsening of medical condition. Patient was counseled about treatment plan, medications, possible side effects, patientverbalized understanding. All questions were answered to the best of my ability. This discharge took greater then 30 minutes in planning, reviewing documentation, counseling the patient, and discussing with other team members." ASSESSMENT ASSESSMENT Assessment 74-year-old male with a known history of CAD status post quadruple bypass, status post PTCA and stenting of LAD diagonal as well as saphenous graft to marginal in the past, chronic AFib, hypertension, dyslipidemia, hypothyroidism, insulin-dependent diabetes mellitus type 2 who was brought in by Cardiology for left heart catheterization found to have 1. Severe aortic stenosis need TAVR2. Dyspnea on exertion secondary to above 3. CAD status post quadruple bypass in 2014 4. Status post PTCA and stenting of LAD to diagonal JuneS 5. Status post PTCA and stenting of saphenous graft to the marginal, June. Hypertension7. Insulin-dependent diabetes mellitus type 28. HypothyroidismAbsolutely what he used nystatin okay want to use that can well use likesomething like ketoconazole or something along those lines a guys on theon the other the ketoconazole just looking something that might be alittle bit more affected want you tried the cyclops her ox it could be itsshampoo for Creamer gel were solution however you Wanna given twice a dayand sexually indicated for fungal of the anal fund tinea and remote shazia stealth like add tinea cruris technique right poor is it is a littlebit more broad-spectrum under think it is going to be more beneficial thatis a cyclops rockjoyce BURGESS RO FX you can use a cream or a gelshampoos distention I do not know that comes in a powder you might want tocheck with the pharmacy and see if they have a special preparation thatthey can neck contour. But it is should be pretty effective hemorrhagedose what was a dose of the tulal[place] unit when I views of the past unsureyou guys of probably been also exposed typically view gave of the Ativanare are or Xanax to help him get distally just put a mild like a low- dose25 of of of Seroquel are was at the she was on low-dose while she wasstill getting lipids RA sure Date of Service: Jan 01, 2025 Billing Provider: DANIS HUTCHISON MD Common Visit Codes: NOT BILLABLE DANIS HUTCHISON MD Jan 02, 2025 13:33
== END 2025-01-01 22:18 | disposition short-term general hospital (02) | DRG 287 ==
LOC: CATH 11:50 → OVERFLOW 14:40 → TELE-WESTW 18:15
PROVIDERS: ADMIT Internal Medicine; ATTEND Internal Medicine
PROC: 4A023N8 Measurement of Cardiac Sampling and Pressure, Bilateral, Percutaneous Approach (ICD-10-PCS; principal; 2025-01-01)
PROC: B211YZZ Fluoroscopy of Multiple Coronary Arteries using Other Contrast (ICD-10-PCS; 2025-01-01)
PROC: B215YZZ Fluoroscopy of Left Heart using Other Contrast (ICD-10-PCS; 2025-01-01)
PROC: B21FYZZ Fluoroscopy of Other Bypass Graft using Other Contrast (ICD-10-PCS; 2025-01-01)
PROC: B218YZZ Fluoroscopy of Left Internal Mammary Bypass Graft using Other Contrast (ICD-10-PCS; 2025-01-01)
DX: I35.0 Nonrheumatic aortic (valve) stenosis (principal); I48.20 Chronic atrial fibrillation, unspecified; I27.20 Pulmonary hypertension, unspecified; I50.9 Heart failure, unspecified; I11.0 Hypertensive heart disease with heart failure; E11.9 Type 2 diabetes mellitus without complications; I25.10 Atherosclerotic heart disease of native coronary artery without angina pectoris; E03.9 Hypothyroidism, unspecified; E78.5 Hyperlipidemia, unspecified; Z98.61 Coronary angioplasty status; Z95.1 Presence of aortocoronary bypass graft; Z79.4 Long term (current) use of insulin; Z80.8 Family history of malignant neoplasm of other organs or systems; Z82.49 Family history of ischemic heart disease and other diseases of the circulatory system
CPT/HCPCS: 36415; 80048; 82962; 99152; G0378; J2250; Q9967